=== PATIENT | male | born 1945 | race Hispanic/Latino ===

== ENCOUNTER 2018-08-26 17:00 | Emergency (ER) | payer OTHER ==
--- OUTSIDE RECORDS SUMMARY | 2018-08-26 17:02 | XMS REPORT ---
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
--- OUTSIDE RECORDS SUMMARY | 2018-08-26 17:02 | XMS REPORT ---
:1945 Author Organization [employer] Care Team Providers Name Role Phone Don Joyce Provider Role Unavailable Allergies No Known Allergies Problems Problem Type Condition Code Onset Dates Condition Status Problem Spinal stenosis, other region M48.00 Active Problem Type 2 diabetes mellitus with other E11.29 Active diabetic kidney complication Problem BPH without urinary obstruction N40.0 Active Problem Hypertension I10 Active Assessment Coronary artery disease I25.10 Active Problem Obesity E66.9 Active Assessment Anemia, chronic disease D63.8 Active Assessment BPH without urinary obstruction N40.0 Active Problem Hyperlipidemia E78.5 Active Problem 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 Active lumbosacral intervertebral disc Problem Anemia, chronic disease D63.8 Active Problem Coronary artery disease I25.10 Active Problem Thrombocytopenia D69.6 Active Assessment End stage renal disease N18.6 Active Assessment Hyperlipidemia E78.5 Active Assessment Subclinical hypothyroidism E03.9 Active Assessment 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 Problem End stage renal disease N18.6 Active Assessment Hypertension I10 Active Problem Subclinical hypothyroidism E03.9 Active Assessment Thrombocytopenia D69.6 Active Assessment Type 2 diabetes mellitus with other E11.29 Active diabetic kidney complication Problem 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 Medications Medication Code Code Instructions Start End Status Dosage System Date Date Norvasc [facility] [place] [facility]] 44875185727 10 MG Orally Active 1 tablet Once a day Plavix [facility] [place] 2] 85241184158 75 MG Orally Active 1 tablet Once a day Lipitor [facility] [place] 2] 79338457219 40 MG Orally Active 1 tablet Once a day Bumetanide [facility] [place]NOTE 2] 98477562725 2 MG Orally BID Active 1 tab Isosorbide [facility] [place]NOTE 2] 82648690176 30 MG Orally Active 1 tablet Dinitrate Twice a day Coreg [facility] [place] 2] 62072024744 25 MG Orally Active not defined Flomax [facility] [place] 2] 76070294911 0.4 MG Orally Oct 10, Active 1 capsule Once a day 2017 Lantus [facility] [place]NOTE 2] 97748326250 100 UNIT/ML Active not Subcutaneous defined Magnesium [facility] [place]NOTE 2] 73096432648 400 MG Orally Active 1 tablet Oxide Once a day as needed Results No Known Results Summary Purpose [employer]ClinicalWorks Submission
--- OUTSIDE RECORDS SUMMARY | 2018-08-26 17:02 | XMS REPORT ---
:1945 Author Organization [employer]ClinicalWorks Care Team Providers Name Role Phone Don Joyce Provider Role Unavailable Allergies, Adverse Reactions, Alerts Substance Reaction Event Type N.K.D.A. Info Not Available Non Drug Allergy Problems Problem Type Condition Code Onset Dates Condition Status Problem Spinal stenosis, other region M48.00 Active Problem Type 2 diabetes mellitus with other E11.29 Active diabetic kidney complication Problem BPH without urinary obstruction N40.0 Active Problem Hypertension I10 Active Assessment Anemia, chronic disease D63.8 Active Problem Obesity E66.9 Active Assessment BPH without urinary obstruction N40.0 Active Assessment Thrombocytopenia D69.6 Active Problem Hyperlipidemia E78.5 Active Problem 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 Active lumbosacral intervertebral disc Problem Anemia, chronic disease D63.8 Active Problem Coronary artery disease I25.10 Active Problem Thrombocytopenia D69.6 Active Assessment 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 Assessment End stage renal disease N18.6 Active Assessment Coronary artery disease I25.10 Active Assessment Subclinical hypothyroidism E03.9 Active Assessment Type 2 diabetes mellitus with other E11.29 Active diabetic kidney complication Problem End stage renal disease N18.6 Active Assessment Hyperlipidemia E78.5 Active Problem Subclinical hypothyroidism E03.9 Active Assessment Hypertension I10 Active Problem 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 Medications Medication Code Code Instructions Start End Status Dosage System Date Date Isosorbide [facility] 37311182135 30 MG Orally Active 1 tablet Dinitrate Twice a day Lipitor [facility] 73835619932 40 MG Orally Active 1 tablet Once a day Flomax [facility] 37568983328 0.4 MG Orally Maggie Active 1 capsule Once a day 2017 Coreg [facility] 18984836866 25 MG Orally Active not defined Bumetanide [facility] 24604891743 2 MG Orally Active not defined Plavix [facility] 57785105679 75 MG Orally Active 1 tablet Once a day Norvasc [facility] 84125575208 10 MG Orally Active 1 tablet Once a day Lantus [facility] 26273783034 100 UNIT/ML Active not Subcutaneous defined Magnesium [facility] 71384392090 400 MG Orally Active 1 tablet Oxide Once a day as needed Results No Known Results Summary Purpose [employer]ClinicalWorks Submission
--- OUTSIDE RECORDS SUMMARY | 2018-08-26 17:02 | XMS REPORT ---
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
--- NOTE | 2018-08-26 17:49 | RAD REPORT ---
EXAM DESCRIPTION: CTSpine Lumbar Wo Con08/26/2018 5:33 pm CLINICAL HISTORY: Back pain and radiculopathy COMPARISON: None TECHNIQUE: Computed axial tomography lumbar spine was obtained with coronal and sagittal reconstruct ion. All CT scans are performed using dose optimization technique as appropriate and may include automated exposure control or mA/KV adjustment according to patient size. FINDINGS: No fracture is seen. No dislocation is noted. Disc bulge, small central disc protrusion, ligamentum flavum and facet hypertrophy at L2-3 result in narrowing of the thecal sac which measures 4 millimeters. Disc bulge, ligamentum flavum and facet hypertrophy at L3-4 resulting in narrowing of the thecal sac which measures 6.5 millimeters. Mild to moderate narrowing the neural foramina is seen. Disc bulge, ligamentum flavum facet hypertrophy L5-S1 is seen. Vacuum phenomena is noted. Gas bubble abuts the right anterior aspect of the thecal sac. Thecal sac measures 6.5 millimeters. IMPRESSION: Negative for a lumbar fracture. Spondylosis L3-4 resulting in marked central spinal stenosis Spondylosis L4-5 and L5-S1 resulting in moderate central spinal stenosis
[2018-08-26] MEDS ORDERED: DIAZEPAM 5 MG TABLET ONE (17:59)
[2018-08-26] MEDS ORDERED: ONDANSETRON 4 MG/2 ML VIAL ONE (18:00)
[2018-08-26] MEDS ORDERED: DEXAMETHASONE 4 MG/ML VIAL ONE (18:00)
[2018-08-26] MEDS ORDERED: MORPHINE 4 MG/ML SYR ONE (18:00)
[2018-08-26 18:26] LABS: Absolute Lymphocytes (CBC) 0.5 K/uL (0.7-4.9); Absolute Monocytes 0.5 K/uL (0.1-1.3); Absolute Neutrophil 5.6 K/uL (1.8-8.0); Basophils % 0.8 % (0-1.3); Eosinophils % 3.4 % (0-4.4); Hematocrit 30.9 % (39.6-49.0); MCH 33.4 pg (27.0-35.0); MCV 95.9 fL (80-100); MPV 9.4 fL (7.6-11.3); Monocytes % 7.7 % (3.3-12.3); RBC Red Blood Cell Count 3.23 M/uL (4.33-5.43)
[2018-08-26 18:43] LABS: Albumin 3.7 g/dL (3.4-5.0); Bilirubin Total 0.6 mg/dL (0.2-1.0); Potassium 3.5 mmol/L (3.5-5.1); Protein, Total 7.4 g/dL (6.4-8.2)
--- NOTE | 2018-08-26 19:52 | EDPHYS ---
Physician Documentation [facility] Name: Geronimo Hurtado Age: 72 yrs Sex: Male : 1945 Arrival Date: 08/26/2018 Time: 17:06 Bed 25 Private MD: Davion Degroot ED Physician Dandre Bosch HPI: 08/26 17:24 This 72 yrs old Male presents to ER via Ambulatory with complaints of Back gary Pain. 17:24 The patient presents with pain that is acute, and decreased range of motion. The gary symptoms are located in the low back. Onset: The symptoms/episode began/occurred 2 day(s) ago. The pain does not radiate. Associated signs and symptoms: The patient has no apparent associated signs or symptoms. The problem was sustained when bending over, when lifting. Severity of symptoms: At their worst the symptoms were moderate, severe, in the emergency department the symptoms are unchanged. Historical: - Allergies: 17:25 No Known Allergies; ss - PMHx: 17:25 Diabetes - IDDM; ESRD; DIALYSIS MWF; ss - PSHx: 17:25 CABG; R upper arm dialysis graft; ss - Immunization history:: Adult Immunizations up to date. - Social history:: Smoking status: Patient/guardian denies using tobacco. - Ebola Screening: : Patient denies exposure to infectious person Patient denies travel to an Ebola-affected area in the 21 days before illness onset. - Family history:: not pertinent. ROS: 17:24 Constitutional: Negative for fever, chills, and weight loss, Eyes: Negative for injury, gary pain, redness, and discharge, ENT: Negative for injury, pain, and discharge, Neck: Negative for injury, pain, and swelling, Cardiovascular: Negative for chest pain, palpitations, and edema, Respiratory: Negative for shortness of breath, cough, wheezing, and pleuritic chest pain, Abdomen/GI: Negative for abdominal pain, nausea, vomiting, diarrhea, and constipation, : Negative for injury, bleeding, discharge, and swelling, MS/Extremity: Negative for injury and deformity, Skin: Negative for injury, rash, and discoloration, Neuro: Negative for headache, weakness, numbness, tingling, and seizure, Psych: Negative for depression, anxiety, suicide ideation, homicidal ideation, and hallucinations, Allergy/Immunology: Negative for hives, rash, and allergies, Endocrine: Negative for neck swelling, polydipsia, polyuria, polyphagia, and marked weight changes, Hematologic/Lymphatic: Negative for swollen nodes, abnormal bleeding, and unusual bruising. 17:24 Back: Positive for decreased range of motion, pain at rest, pain with movement, of the lumbar area. Exam: 17:24 Constitutional: This is a well developed, well nourished patient who is awake, alert, gary and in no acute distress. Head/Face: Normocephalic, atraumatic. Eyes: Pupils equal round and reactive to light, extra-ocular motions intact. Lids and lashes normal. Conjunctiva and sclera are non-icteric and not injected. Cornea within normal limits. Periorbital areas with no swelling, redness, or edema. ENT: Nares patent. No nasal discharge, no septal abnormalities noted. Tympanic membranes are normal and external auditory canals are clear. Oropharynx with no redness, swelling, or masses, exudates, or evidence of obstruction, uvula midline. Mucous membranes moist. Neck: Trachea midline, no thyromegaly or masses palpated, and no cervical lymphadenopathy. Supple, full range of motion without nuchal rigidity, or vertebral point tenderness. No Meningismus. Chest/axilla: Normal chest wall appearance and motion. Nontender with no deformity. No lesions are appreciated. Cardiovascular: Regular rate and rhythm with a normal S1 and S2. No gallops, murmurs, or rubs. Normal PMI, no JVD. No pulse deficits. Respiratory: Lungs have equal breath sounds bilaterally, clear to auscultation and percussion. No rales, rhonchi or wheezes noted. No increased work of breathing, no retractions or nasal flaring. Abdomen/GI: Soft, non-tender, with normal bowel sounds. No distension or tympany. No guarding or rebound. No evidence of tenderness throughout. Male : Normal genitalia with no discharge or lesions. Skin: Warm, dry with normal turgor. Normal color with no rashes, no lesions, and no evidence of cellulitis. MS/ Extremity: Pulses equal, no cyanosis. Neurovascular intact. Full, normal range of motion. Neuro: Awake and alert, GCS 15, oriented to person, place, time, and situation. Cranial nerves II-XII grossly intact. Motor strength 5/5 in all extremities. Sensory grossly intact. Cerebellar exam normal. Normal gait. Psych: Awake, alert, with orientation to person, place and time. Behavior, mood, and affect are within normal limits. 17:24 Musculoskeletal/extremity: DVT Exam: No signs of deep vein thrombosis. no pain, no swelling, no tenderness, negative Homans' sign noted on exam, no appreciated bluish discoloration, no erythema, no increased warmth. Vital Signs: 17:25 BP 193 / 67; Pulse 80; Resp 21; Temp 98.9; Pulse Ox 100% on R/A; Weight 63.5 kg; Height ss 5 ft. 3 in. (160.02 cm); Pain 10/10; 18:18 BP 175 / 58; Pulse 75; Resp 18; Pulse Ox 95% on R/A; aj1 19:15 BP 175 / 72; Pulse 75; Resp 17; Pulse Ox 99% on R/A; Pain 3/10; rr5 17:25 Body Mass Index 24.80 (63.50 kg, 160.02 cm) MDM: 17:13 Patient medically screened. [facility] 17:24 Data reviewed: vital signs, nurses notes, lab test result(s), radiologic studies, CT gary scan. 08/26 17:24 Order name: Comprehensive Metabolic Panel; Complete Time: 19:49 [facility] 08/26 17:24 Order name: CBC with Diff; Complete Time: 18:37 [facility] 08/26 17:24 Order name: CT Lumbar Spine Wo Con; Complete Time: 18:37 [facility] Administered Medications: 18:10 Drug: morphine 4 mg Route: IVP; Site: left antecubital; aj1 20:13 Follow up: Response: No adverse reaction rr5 18:10 Drug: Decadron - Dexamethasone 10 mg Route: IVP; Site: left antecubital; aj1 20:13 Follow up: Response: No adverse reaction rr5 18:10 Drug: Valium 5 mg Route: PO; aj1 20:13 Follow up: Response: No adverse reaction rr5 18:10 Drug: Zofran 4 mg Route: IVP; Site: left antecubital; aj1 20:13 Follow up: Response: No adverse reaction rr5 18:25 CANCELLED (Inappropriate at this time): Zofran 4 mg PO once aj1 Disposition: 08/26/18 19:52 Discharged to Home. Impression: Low back pain, End stage renal disease, Spondylolysis, lumbar region, Spinal stenosis, lumbar region, Anemia, unspecified. - Condition is Fair. - Discharge Instructions: Back Pain, Adult, Musculoskeletal Pain, Back Injury Prevention, [id number]-[id number], Dialysis, Back Pain, Adult, [id number]-eg-Qvdi. - Prescriptions for Tylenol- Codeine #3 300-30 mg Oral Tablet - take 2 tablet by ORAL route every 6 hours As needed; 30 tablet. Valium 5 mg Oral Tablet - take 1 tablet by ORAL route every 8 hours As needed; 20 tablet. Medrol (Warren) 4 mg Oral Tablets, Dose Pack - take 1 tablet by ORAL route as directed - follow package instructions; 1 packet. - Medication Reconciliation Form, Thank You Letter, Antibiotic Education, Prescription Opioid Use form. - Follow up: Davion Degroot; When: 2 - 3 days; Reason: Recheck today's complaints, Continuance of care, Re-evaluation by your physician. - Problem is new. - Symptoms have improved. Signatures: Dispatcher [employer] Gina Wang RN RN aj1 Dandre Bosch MD MD cha Smirch, Shelby, RN RN ss Rusty Montano RN RN rr5 Corrections: (The following items were deleted from the chart) 18:25 17:27 Zofran 4 mg PO once ordered. gary lyle 19:53 19:52 08/26/2018 19:52 Discharged to Home. Impression: Low back pain; End stage renal gary disease. Condition is Fair. Discharge Instructions: Back Pain, Adult, Musculoskeletal Pain, Back Injury Prevention, Kkuu-cz-Yepa, Dialysis, Back Pain, Adult, Smwe-ov-Ujxh. Prescriptions for Tylenol-Codeine #3 300-30 mg Oral Tablet - take 2 tablet by ORAL route every 6 hours As needed; 30 tablet, Valium 5 mg Oral Tablet - take 1 tablet by ORAL route every 8 hours As needed; 20 tablet, Medrol (Warren) 4 mg Oral Tablets, Dose Pack - take 1 tablet by ORAL route as directed - follow package instructions; 1 packet. and Forms are Medication Reconciliation Form, Thank You Letter, Antibiotic Education, Prescription Opioid Use. Follow up: Davion Degroot; When: 2 - 3 days; Reason: Recheck today's complaints, Continuance of care, Re-evaluation by your physician. Problem is new. Symptoms have improved. gary 20:14 19:53 08/26/2018 19:52 Discharged to Home. Impression: Low back pain; End stage renal rr5 disease; Spondylolysis, lumbar region; Spinal stenosis, lumbar region; Anemia, unspecified. Condition is Fair. Discharge Instructions: Back Pain, Adult, Musculoskeletal Pain, Back Injury Prevention, Ozqv-bh-Wfah, Dialysis, Back Pain, Adult, Hobl-wv-Jtzl. Prescriptions for Tylenol-Codeine #3 300-30 mg Oral Tablet - take 2 tablet by ORAL route every 6 hours As needed; 30 tablet, Valium 5 mg Oral Tablet - take 1 tablet by ORAL route every 8 hours As needed; 20 tablet, Medrol (Warren) 4 mg Oral Tablets, Dose Pack - take 1 tablet by ORAL route as directed - follow package instructions; 1 packet. and Forms are Medication Reconciliation Form, Thank You Letter, Antibiotic Education, Prescription Opioid Use. Follow up: Davion Degroot; When: 2 - 3 days; Reason: Recheck today's complaints, Continuance of care, Re-evaluation by your physician. Problem is new. Symptoms have improved. gary
--- NOTE | 2018-08-26 19:52 | ER ---
Nurse's Notes [facility] Name: Geronimo Hurtado Age: 72 yrs Sex: Male : 1945 Arrival Date: 08/26/2018 Time: 17:06 Bed 25 Private MD: Davion Degroot Diagnosis: Low back pain;End stage renal disease;Spondylolysis, lumbar region;Spinal stenosis, lumbar region;Anemia, unspecified Presentation: 08/26 17:22 Presenting complaint: Patient states: R lower back pain that began after laying in an ss awkward position, installing a faucet 2 days ago. Pt reports that he has had similar back pain before, and believes it was a disc in his back last time. Transition of care: patient was not received from another setting of care. Onset of symptoms was August 24, 2018. Risk Assessment: Do you want to hurt yourself or someone else? Patient reports no desire to harm self or others. Initial Sepsis Screen: Does the patient meet any 2 criteria? RR > 20 per min. Does the patient have a suspected source of infection? No. Patient's initial sepsis screen is negative. Care prior to arrival: None. 17:22 Method Of Arrival: Ambulatory ss 17:22 Acuity: LYNETTE 3 ss Historical: - Allergies: 17:25 No Known Allergies; ss - PMHx: 17:25 Diabetes - IDDM; ESRD; DIALYSIS MWF; ss - PSHx: 17:25 CABG; R upper arm dialysis graft; ss - Immunization history:: Adult Immunizations up to date. - Social history:: Smoking status: Patient/guardian denies using tobacco. - Ebola Screening: : Patient denies exposure to infectious person Patient denies travel to an Ebola-affected area in the 21 days before illness onset. - Family history:: not pertinent. Screenin:18 Abuse screen: Denies threats or abuse. Denies injuries from another. Nutritional aj1 screening: No deficits noted. Tuberculosis screening: No symptoms or risk factors identified. 19:15 Fall Risk None identified. rr5 Assessment: 17:27 Reassessment: Patient taken to CT via stretcher. aj1 18:18 General: Appears in no apparent distress. uncomfortable, Behavior is calm, cooperative, aj1 appropriate for age. Pain: Complains of pain in lumbar area Pain does not radiate. Pain currently is 10 out of 10 on a pain scale. Neuro: Level of Consciousness is awake, alert, obeys commands, Quality Control Technician are equal bilaterally Moves all extremities. Full function. Cardiovascular: Patient's skin is warm and dry. Respiratory: Airway is patent Respiratory effort is even, unlabored, Respiratory pattern is regular, symmetrical. GI: No signs and/or symptoms were reported involving the gastrointestinal system. : No signs and/or symptoms were reported regarding the genitourinary system. EENT: No signs and/or symptoms were reported regarding the EENT system. Derm: No signs and/or symptoms reported regarding the dermatologic system. Skin is pink, warm \T\ dry. normal. Musculoskeletal: Circulation, motion, and sensation intact. Range of motion: intact in all extremities. 19:15 General: Appears in no apparent distress. comfortable, Behavior is calm, cooperative, rr5 appropriate for age. Pain: Complains of pain in lumbar area Pain does not radiate. Pain currently is 3 out of 10 on a pain scale. Quality of pain is described as aching, Aggravated by increased activity. Neuro: Level of Consciousness is awake, alert, obeys commands, Quality Control Technician are equal bilaterally. Cardiovascular: Capillary refill < 3 seconds Patient's skin is warm and dry. Respiratory: Airway is patent Respiratory effort is even, unlabored, Respiratory pattern is regular, symmetrical. GI: No signs and/or symptoms were reported involving the gastrointestinal system. : No signs and/or symptoms were reported regarding the genitourinary system. EENT: No signs and/or symptoms were reported regarding the EENT system. Derm: No signs and/or symptoms reported regarding the dermatologic system. Musculoskeletal: Circulation, motion, and sensation intact. Range of motion: intact in all extremities. Vital Signs: 17:25 BP 193 / 67; Pulse 80; Resp 21; Temp 98.9; Pulse Ox 100% on R/A; Weight 63.5 kg; Height ss 5 ft. 3 in. (160.02 cm); Pain 10/10; 18:18 BP 175 / 58; Pulse 75; Resp 18; Pulse Ox 95% on R/A; aj1 19:15 BP 175 / 72; Pulse 75; Resp 17; Pulse Ox 99% on R/A; Pain 3/10; rr5 17:25 Body Mass Index 24.80 (63.50 kg, 160.02 cm) ED Course: 17:06 Patient arrived in ED. sb2 17:06 Davion Degroot DO is Private Physician. sb2 17:13 Dandre Bosch MD is Attending Physician. gary 17:24 Triage completed. ss 17:24 Gina López RN is Primary Nurse. aj1 17:25 Arm band placed on right wrist. ss 17:[address] vm2 17:34 CT Lumbar Spine Wo Con In Process Unspecified. EDMS 18:18 Patient has correct armband on for positive identification. Bed in low position. Call aj1 light in reach. Side rails up X2. 18:18 No provider procedures requiring assistance completed. Inserted saline lock: 20 gauge aj1 in left antecubital area, using aseptic technique. Blood collected. Missed attempt(s): 22 gauge in left forearm. Bleeding controlled, band aid applied, catheter tip intact. 19:49 Davion Degroot DO is Referral Physician. gary 20:12 IV discontinued, bleeding controlled, Pressure dressing applied. rr5 Administered Medications: 18:10 Drug: morphine 4 mg Route: IVP; Site: left antecubital; aj1 20:13 Follow up: Response: No adverse reaction rr5 18:10 Drug: Decadron - Dexamethasone 10 mg Route: IVP; Site: left antecubital; aj1 20:13 Follow up: Response: No adverse reaction rr5 18:10 Drug: Valium 5 mg Route: PO; aj1 20:13 Follow up: Response: No adverse reaction rr5 18:10 Drug: Zofran 4 mg Route: IVP; Site: left antecubital; aj1 20:13 Follow up: Response: No adverse reaction rr5 18:25 CANCELLED (Inappropriate at this time): Zofran 4 mg PO once aj1 Outcome: 19:52 Discharge ordered by . gary 20:11 Discharged to home ambulatory. rr5 20:11 Condition: stable 20:11 Discharge instructions given to patient, family, Instructed on discharge instructions, follow up and referral plans. medication usage, Demonstrated understanding of instructions, follow-up care, medications, Prescriptions given X 3. 20:14 Patient left the ED. rr5 Signatures: Dispatcher [employer] EDKS Gina López, RN RN aj1 Dandre Bosch MD MD cha Smirch, Shelby, RN RN ss Sidra Beckman 2 Darshana Gama sb2 Rusty Montano, RN RN rr5
[2018-08-26 20:39] VITALS: TEMP 98.9
[2018-08-26 20:42] VITALS: BP 175/72; O2SAT 99
== END 2018-08-26 20:14 | disposition home or self-care (01) ==
LOC: ER 17:00
DX: M47.816 Spondylosis without myelopathy or radiculopathy, lumbar region (principal); M48.061 Spinal stenosis, lumbar region without neurogenic claudication; E11.22 Type 2 diabetes mellitus with diabetic chronic kidney disease; N18.6 End stage renal disease; D63.1 Anemia in chronic kidney disease; Z79.4 Long term (current) use of insulin; Z99.2 Dependence on renal dialysis; Z95.1 Presence of aortocoronary bypass graft
CPT/HCPCS: 36415; 72131; 80053; 85025; 96374; 96375; 99284; J2405

== ENCOUNTER 2019-11-03 07:03 | Day surgery (SDC) | payer OTHER ==
--- OUTSIDE RECORDS SUMMARY | 2019-10-31 16:19 | XMS REPORT ---
:1945 Author Organization eClinicalWorks Care Team Providers Name Role Phone Isiah Don Provider Role Unavailable Allergies, Adverse Reactions, Alerts Substance Reaction Event Type N.K.D.A. 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 Assessment Hyperlipidemia E78.5 Active Assessment Type 2 diabetes mellitus with other E11.29 Active diabetic kidney complication Problem Hyperlipidemia E78.5 Active Assessment End stage renal disease N18.6 Active Problem 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 Active lumbosacral intervertebral disc Assessment Generalized anxiety disorder F41.1 Active Problem Thrombocytopenia D69.6 Active Problem Type 2 diabetes mellitus with other E11.29 Active diabetic kidney complication Problem Anemia, chronic disease D63.8 Active Problem Stented coronary artery Z95.5 Active Problem Current moderate episode of major F32.1 Active depressive disorder without prior episode Assessment Current moderate episode of major F32.1 Active depressive disorder without prior episode Assessment History of non-ST elevation I25.2 Active myocardial infarction (NSTEMI) Problem Generalized anxiety disorder F41.1 Active Assessment Stented coronary artery Z95.5 Active Problem BPH without urinary obstruction N40.0 Active Problem Spinal stenosis, other region M48.00 Active Problem History of non-ST elevation I25.2 Active myocardial infarction (NSTEMI) Problem 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 Problem Subclinical hypothyroidism E03.9 Active Problem 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 Assessment 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 Problem Obesity E66.9 Active Problem Hypertension I10 Active Problem End stage renal disease N18.6 Active Problem Coronary artery disease I25.10 Active Medications Medication Code Code Instructions Start End Status Dosage System Date Date Oxybutynin NDC 89893915115 5 MG Orally Active 1 tablet Chloride Twice a day Amlodipine [facility] 53601542338 10 MG Orally Active 1 tablet Besylate Once a day Sertraline HCl [facility] 92262064234 25 MG Orally Active 1 tablet Once a day Imdur NDC 0 60 MG Orally Active 1 tablet Once a day in the morning Aspir-Low [facility] 02145892678 81 MG Orally Active 1 tablet Once a day Sevelamer HCl [facility] 56867831578 800 MG Orally Active 1 tablet Three times a with meals day Coreg [facility] 68803258584 25 MG Orally Active not defined Lantus [facility] 04725041446 100 UNIT/ML Active inject 15 Subcutaneous units Once a day Bumetanide [facility] 40631001474 2 MG Orally BID Active 1 tab Lisinopril [facility] 16849191500 40 MG Orally Active 1 tablet Once a day Plavix [facility] 43901474126 75 MG Orally Inactive 1 tablet Once a day Nitroglycerin [facility] 19658865611 0.4 MG Active as Sublingual directed HydrALAZINE HCl [facility] 07219287713 50 MG Orally Active 1 tablet Three times a with food day Lorazepam [facility] 45484359211 0.5 MG Orally Active 1 tablet every 6 hrs as needed Lipitor [facility] 57208569740 40 MG Orally Active 1 tablet Once a day Carvedilol [facility] 47844635921 25 MG Orally Active 1 tablet Twice a day Brilinta [facility] 40872787862 90 MG Orally Active 1 tablet Twice a day Norvasc [facility] 85095305275 10 MG Orally Active 1 tablet Once a day Tamsulosin HCl [facility] 13567079887 0.4 MG Orally Active 1 capsule twice a day Dialyvite 800 [facility] 08846254289 0.8 MG Orally Active 1 tablet Once a day Atorvastatin [facility] 70586686465 40 MG Orally Active 1 tablet Calcium Once a day Magnesium Oxide [facility] 28142196247 400 MG Orally Active 1 tablet Once a day as needed Results No Known Results Summary Purpose eClinicalWorks Submission
--- OUTSIDE RECORDS SUMMARY | 2019-10-31 16:19 | XMS REPORT ---
:1945 [facility] Address [address] [place] [address] Dr. Shoemaker [address] [place] [address] Care Team Providers Name Role Phone Unavailable Unavailable Unavailable Problems This patient has no known problems. Allergies, Adverse Reactions, Alerts This patient has no known allergies or adverse reactions. Medications This patient has no known medications. Encounters Start End Encounter Admission Attending Care Care Encounter Date/Time Date/Time Type Type Clinicians Facility Department ID 2019-10-10 Outpatient [facility] [id number] 08:42:24 2019-10-15 2019-10-13 Inpatient [facility] [id number] 08:28:00 18:12:00 2019-10-07 2019-10-06 Inpatient E [facility] [id number] 14:24:00 13:06:00 2019-10-05 2019-10-05 Emergency E [facility] [id number] 14:47:00 14:47:00 2019-08-20 2019-08-20 Inpatient E [facility] [id number] 19:14:00 15:35:00
--- OUTSIDE RECORDS SUMMARY | 2019-10-31 16:19 | XMS REPORT ---
:1945 Author Organization eClinicalWorks Care Team Providers Name Role Phone Don Joyce Provider Role Unavailable Allergies No Known Allergies Problems Problem Type Condition Code Onset Dates Condition Status Problem Thrombocytopenia D69.6 Active Problem Type 2 diabetes mellitus with other E11.29 Active diabetic kidney complication Problem Anemia, chronic disease D63.8 Active Problem Stented coronary artery Z95.5 Active Assessment Anemia, chronic disease D63.8 Active Problem Current moderate episode of major F32.1 Active depressive disorder without prior episode Assessment Type 2 diabetes mellitus with other E11.29 Active diabetic kidney complication Assessment Thrombocytopenia D69.6 Active Problem Generalized anxiety disorder F41.1 Active Problem BPH without urinary obstruction N40.0 Active Problem Spinal stenosis, other region M48.00 Active Problem History of non-ST elevation I25.2 Active myocardial infarction (NSTEMI) Problem 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
--- OUTSIDE RECORDS SUMMARY | 2019-10-31 16:20 | XMS REPORT ---
:1945 Author Organization [employer]ClinicalWorks Care Team Providers Name Role Phone Thony Joyceh Provider Role Unavailable Allergies, Adverse Reactions, Alerts Substance Reaction Event Type N.K.D.A. 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 Assessment Hyperlipidemia E78.5 Active Assessment Type 2 diabetes mellitus with other E11.29 Active diabetic kidney complication Assessment End stage renal disease N18.6 Active Problem Hyperlipidemia E78.5 Active Assessment Generalized anxiety disorder F41.1 Active Problem 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 Active lumbosacral intervertebral disc Assessment Stented coronary artery Z95.5 Active Problem Thrombocytopenia D69.6 Active Problem Type 2 diabetes mellitus with other E11.29 Active diabetic kidney complication Problem Anemia, chronic disease D63.8 Active Problem Stented coronary artery Z95.5 Active Problem Current moderate episode of major F32.1 Active depressive disorder without prior episode Assessment Medicare annual wellness visit, Z00.00 Active subsequent Assessment Current moderate episode of major F32.1 Active depressive disorder without prior episode Problem Generalized anxiety disorder F41.1 Active Assessment History of non-ST elevation I25.2 Active myocardial infarction (NSTEMI) Problem BPH without urinary obstruction N40.0 Active Problem Spinal stenosis, other region M48.00 Active Problem History of non-ST elevation I25.2 Active myocardial infarction (NSTEMI) Problem 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 Problem Subclinical hypothyroidism E03.9 Active Problem 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 Assessment 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 Problem Obesity E66.9 Active Problem Hypertension I10 Active Problem End stage renal disease N18.6 Active Problem Coronary artery disease I25.10 Active Medications Medication Code Code Instructions Start End Status Dosage System Date Date Coreg [facility] 54748829585 25 MG Orally Active not defined Lantus [facility] 96477954238 100 UNIT/ML Active inject 15 Subcutaneous units Once a day Lipitor [facility] 21471026415 40 MG Orally Active 1 tablet Once a day Magnesium Oxide [facility] 16433463574 400 MG Orally Active 1 tablet Once a day as needed Plavix [facility] 95889137046 75 MG Orally Inactive 1 tablet Once a day Atorvastatin [facility] 19674709363 40 MG Orally Active 1 tablet Calcium Once a day Dialyvite 800 [facility] 79372945788 0.8 MG Orally Active 1 tablet Once a day HydrALAZINE HCl [facility] 87741658944 50 MG Orally Active 1 tablet Three times a with food day Sertraline HCl [facility] 84895789787 25 MG Orally Active 1 tablet Once a day Nitroglycerin [facility] 86176116899 0.4 MG Active as Sublingual directed Bumetanide [facility] 62186749939 2 MG Orally BID Active 1 tab Lorazepam [facility] 45358591237 0.5 MG Orally Active 1 tablet every 6 hrs as needed Oxybutynin [facility] 93954959493 5 MG Orally Active 1 tablet Chloride Twice a day Brilinta [facility] 84253123188 90 MG Orally Active 1 tablet Twice a day Lisinopril [facility] 14488642331 40 MG Orally Active 1 tablet Once a day Norvasc [facility] 69359889659 10 MG Orally Active 1 tablet Once a day Sevelamer HCl [facility] 40512243139 800 MG Orally Active 1 tablet Three times a with meals day Carvedilol [facility] 44173039783 25 MG Orally Active 1 tablet Twice a day Imdur NDC 0 60 MG Orally Active 1 tablet Once a day in the morning Aspir-Low [facility] 90774952960 81 MG Orally Active 1 tablet Once a day Tamsulosin HCl [facility] 41821808068 0.4 MG Orally Active 1 capsule twice a day Results No Known Results Summary Purpose eClinicalWorks Submission
--- OUTSIDE RECORDS SUMMARY | 2019-11-03 07:07 | XMS REPORT ---
[...] involving I25.709 Active coronary bypass graft of [place] heart with angina pectoris Problem Subclinical hypothyroidism [...]
--- OUTSIDE RECORDS SUMMARY | 2019-11-03 07:07 | XMS REPORT ---
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 Problem Obesity E66.9 Active Problem Hypertension I10 Active Problem End stage renal disease N18.6 Active Problem Coronary artery disease I25.10 Active Medications Medication Code Code Instructions Start End Status Dosage System Date Date Coreg [facility] 35028186028 25 MG Orally Active not defined Lantus [facility] 73615682398 100 UNIT/ML Active inject 15 Subcutaneous units Once a day Lipitor [facility] 88091934877 40 MG Orally Active 1 tablet Once a day Magnesium Oxide [facility] 29491545275 400 MG Orally Active 1 tablet Once a day as needed Plavix [facility] 22729788225 75 MG Orally Inactive 1 tablet Once a day Atorvastatin [facility] 14669324372 40 MG Orally Active 1 tablet Calcium Once a day Dialyvite 800 [facility] 93817379413 0.8 MG Orally Active 1 tablet Once a day HydrALAZINE HCl [facility] 80799705096 50 MG Orally Active 1 tablet Three times a with food day Sertraline HCl [facility] 25935754131 25 MG Orally Active 1 tablet Once a day Nitroglycerin [facility] 72266780504 0.4 MG Active as Sublingual directed Bumetanide [facility] 66401723322 2 MG Orally BID Active 1 tab Lorazepam [facility] 19134590762 0.5 MG Orally Active 1 tablet every 6 hrs as needed Oxybutynin [facility] 59567334485 5 MG Orally Active 1 tablet Chloride Twice a day Brilinta [facility] 75018708678 90 MG Orally Active 1 tablet Twice a day Lisinopril [facility] 73989688480 40 MG Orally Active 1 tablet Once a day Norvasc [facility] 59880116825 10 MG Orally Active 1 tablet Once a day Sevelamer HCl [facility] 58014346923 800 MG Orally Active 1 tablet Three times a with meals day Carvedilol [facility] 30505705255 25 MG Orally Active 1 tablet Twice a day Imdur NDC 0 60 MG Orally Active 1 tablet Once a day in the morning Aspir-Low [facility] 63252128721 81 MG Orally Active 1 tablet Once a day Tamsulosin HCl [facility] 21106555964 0.4 MG Orally Active 1 capsule twice a day Results No Known Results Summary Purpose eClinicalWorks Submission
--- OUTSIDE RECORDS SUMMARY | 2019-11-03 07:07 | XMS REPORT ---
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 Problem Obesity E66.9 Active Problem Hypertension I10 Active Problem End stage renal disease N18.6 Active Problem Coronary artery disease I25.10 Active Medications Medication Code Code Instructions Start End Status Dosage System Date Date Oxybutynin NDC 11830236215 5 MG Orally Active 1 tablet Chloride Twice a day Amlodipine [facility] 80217594751 10 MG Orally Active 1 tablet Besylate Once a day Sertraline HCl [facility] 82671808481 25 MG Orally Active 1 tablet Once a day Imdur NDC 0 60 MG Orally Active 1 tablet Once a day in the morning Aspir-Low [facility] 65118712988 81 MG Orally Active 1 tablet Once a day Sevelamer HCl [facility] 63634514775 800 MG Orally Active 1 tablet Three times a with meals day Coreg [facility] 15279400753 25 MG Orally Active not defined Lantus [facility] 59872464182 100 UNIT/ML Active inject 15 Subcutaneous units Once a day Bumetanide [facility] 78993922032 2 MG Orally BID Active 1 tab Lisinopril [facility] 51076061591 40 MG Orally Active 1 tablet Once a day Plavix [facility] 16998204687 75 MG Orally Inactive 1 tablet Once a day Nitroglycerin [facility] 68863981930 0.4 MG Active as Sublingual directed HydrALAZINE HCl [facility] 05770886313 50 MG Orally Active 1 tablet Three times a with food day Lorazepam [facility] 55078048497 0.5 MG Orally Active 1 tablet every 6 hrs as needed Lipitor [facility] 87560980284 40 MG Orally Active 1 tablet Once a day Carvedilol [facility] 38780531208 25 MG Orally Active 1 tablet Twice a day Brilinta [facility] 32330119923 90 MG Orally Active 1 tablet Twice a day Norvasc [facility] 10524922557 10 MG Orally Active 1 tablet Once a day Tamsulosin HCl [facility] 51084302910 0.4 MG Orally Active 1 capsule twice a day Dialyvite 800 [facility] 87675588078 0.8 MG Orally Active 1 tablet Once a day Atorvastatin [facility] 00546801394 40 MG Orally Active 1 tablet Calcium Once a day Magnesium Oxide [facility] 41509584620 400 MG Orally Active 1 tablet Once a day as needed Results No Known Results Summary Purpose eClinicalWorks Submission
--- OUTSIDE RECORDS SUMMARY | 2019-11-03 07:07 | XMS REPORT ---
:1945 [facility] Address [address] [place] [address] Dr. Shoemaker [address] [place] [address] Care Team Providers Name Role Phone Unavailable [...]
[2019-11-03] MEDS ORDERED: NA CHLORIDE 0.9% 250 ML ONE (08:20)
[2019-11-03 08:56] VITALS: BMI 25.3
[2019-11-03 13:48] VITALS: BP 133/46; TEMP 97.5; O2SAT 99
== END 2019-11-03 15:05 | disposition home or self-care (01) ==
LOC: BLT 07:03 → DS 15:05
PROVIDERS: ATTEND Internal Medicine Nephrology
PROC: 30233N1 Transfusion of Nonautologous Red Blood Cells into Peripheral Vein, Percutaneous Approach (ICD-10-PCS; principal; 2019-11-03)
DX: N18.6 End stage renal disease (principal)
CPT/HCPCS: 36415 ×2; 86900; 86850; 86308; 86901; 85018; 85014; 36430; P9016 ×2; J7030

== ENCOUNTER 2019-12-15 16:15 | Observation (INO) | payer OTHER ==
--- OUTSIDE RECORDS SUMMARY | 2019-12-15 16:17 | XMS REPORT ---
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 81757595004 10 MG Orally Active 1 tablet Besylate Once a day Sertraline HCl [facility] 88393382771 25 MG Orally Active 1 tablet Once a day Imdur NDC 0 60 MG Orally Active 1 tablet Once a day in the morning Aspir-Low [facility] 79844924443 81 MG Orally Active 1 tablet Once a day Sevelamer HCl [facility] 79592653218 800 MG Orally Active 1 tablet Three times a with meals day Coreg [facility] 77462723844 25 MG Orally Active not defined Lantus [facility] 25475426030 100 UNIT/ML Active inject 15 Subcutaneous units Once a day Bumetanide [facility] 25571190629 2 MG Orally BID Active 1 tab Lisinopril [facility] 93163692127 40 MG Orally Active 1 tablet Once a day Plavix [facility] 64936388856 75 MG Orally Inactive 1 tablet Once a day Nitroglycerin [facility] 83232492868 0.4 MG Active as Sublingual directed HydrALAZINE HCl [facility] 92105869864 50 MG Orally Active 1 tablet Three times a with food day Lorazepam [facility] 36282889874 0.5 MG Orally Active 1 tablet every 6 hrs as needed Lipitor [facility] 01523740174 40 MG Orally Active 1 tablet Once a day Carvedilol [facility] 22033727474 25 MG Orally Active 1 tablet Twice a day Brilinta [facility] 20462513770 90 MG Orally Active 1 tablet Twice a day Norvasc [facility] 49844698532 10 MG Orally Active 1 tablet Once a day Tamsulosin HCl [facility] 76913425778 0.4 MG Orally Active 1 capsule twice a day Dialyvite 800 [facility] 29693582997 0.8 MG Orally Active 1 tablet Once a day Atorvastatin [facility] 69335588254 40 MG Orally Active 1 tablet Calcium Once a day Magnesium Oxide [facility] 51414900845 400 MG Orally Active 1 tablet Once a day as needed Results No Known Results Summary Purpose eClinicalWorks Submission
--- OUTSIDE RECORDS SUMMARY | 2019-12-15 16:18 | XMS REPORT ---
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 Problem Obesity E66.9 Active Problem Hypertension I10 Active Problem End stage renal disease N18.6 Active Problem Coronary artery disease I25.10 Active Medications Medication Code Code Instructions Start End Status Dosage System Date Date Coreg [facility] 90660391500 25 MG Orally Active not defined Lantus [facility] 18965559724 100 UNIT/ML Active inject 15 Subcutaneous units Once a day Lipitor [facility] 49826932558 40 MG Orally Active 1 tablet Once a day Magnesium Oxide [facility] 54315239614 400 MG Orally Active 1 tablet Once a day as needed Plavix [facility] 44558316405 75 MG Orally Inactive 1 tablet Once a day Atorvastatin [facility] 29006701682 40 MG Orally Active 1 tablet Calcium Once a day Dialyvite 800 [facility] 69166244021 0.8 MG Orally Active 1 tablet Once a day HydrALAZINE HCl [facility] 62466670767 50 MG Orally Active 1 tablet Three times a with food day Sertraline HCl [facility] 17294712581 25 MG Orally Active 1 tablet Once a day Nitroglycerin [facility] 14612957797 0.4 MG Active as Sublingual directed Bumetanide [facility] 12552077556 2 MG Orally BID Active 1 tab Lorazepam [facility] 99786519068 0.5 MG Orally Active 1 tablet every 6 hrs as needed Oxybutynin [facility] 67947941659 5 MG Orally Active 1 tablet Chloride Twice a day Brilinta [facility] 98228432609 90 MG Orally Active 1 tablet Twice a day Lisinopril [facility] 33454403005 40 MG Orally Active 1 tablet Once a day Norvasc [facility] 12622808952 10 MG Orally Active 1 tablet Once a day Sevelamer HCl [facility] 77275612593 800 MG Orally Active 1 tablet Three times a with meals day Carvedilol [facility] 17442264458 25 MG Orally Active 1 tablet Twice a day Imdur NDC 0 60 MG Orally Active 1 tablet Once a day in the morning Aspir-Low [facility] 21884987823 81 MG Orally Active 1 tablet Once a day Tamsulosin HCl [facility] 86471515635 0.4 MG Orally Active 1 capsule twice a day Results No Known Results Summary Purpose eClinicalWorks Submission
--- OUTSIDE RECORDS SUMMARY | 2019-12-15 16:18 | XMS REPORT ---
:1945 [facility] Address [address] [place] [address] [place] [id number] Care Team Providers Name Role Phone Unavailable [...]
--- OUTSIDE RECORDS SUMMARY | 2019-12-15 16:18 | XMS REPORT ---
[...] involving I25.709 Active coronary bypass graft of [place] heart with angina pectoris Problem Subclinical hypothyroidism [...]
[2019-12-15] MEDS ORDERED: IPRATROPIUM BROM 0.5MG/2.5ML ONE (17:06)
[2019-12-15] MEDS ORDERED: ALBUTEROL 2.5 MG/3 ML NEB SOL ONE (17:07)
[2019-12-15 17:13] LABS: Absolute Lymphocytes (CBC) 0.4 K/uL (0.7-4.9); Basophils % 0.9 % (0-1.3); Hematocrit 25.2 % (39.6-49.0); Lymphocytes % 6.6 % (15.3-44.8); MPV 9.9 fL (7.6-11.3)
--- NOTE | 2019-12-15 17:14 | RAD REPORT ---
EXAM DESCRIPTION: RAD - Chest Single View - 12/15/2019 4:34 pm CLINICAL HISTORY: DYSPNEA COMPARISON: Chest Single View dated 02/14/2016 TECHNIQUE: AP portable chest image was obtained 12/15/2019 4:34 pm . FINDINGS: No peripheral mass or consolidation. Interstitial markings are mildly prominent. Central v asculature is mildly prominent. Heart size is upper normal to slightly enlarged. Sternotomy wires are in place. Minimal bilateral pleural effusions are present. No pneumothorax. No acute bony abnormalit y seen. No acute aortic findings suspected. IMPRESSION: Mild CHF/volume overload.
--- NOTE | 2019-12-15 17:15 | ER ---
Nurse's Notes [facility] Name: Geronimo Hurtado Age: 74 yrs Sex: Male : 1945 Arrival Date: 12/15/2019 Time: 16:17 Bed 6 Private MD: Diagnosis: Other chest pain;End stage renal disease;Unspecified combined systolic (congestive) and diastolic (congestive) heart failure;Essential (primary) hypertension;Type 2 diabetes mellitus;Anemia, unspecified Presentation: 12/14 16:20 Chief complaint: Patient states: SOB on exertion started yesterday. Thought it will be ca1 better after dialysis but did not. Dialysis schedule M,W,F. Denies cough and fever. Coronavirus screen: The patient has NOT traveled to [place] in the past 14 days. The patient has NOT had contact with known and/or suspected case of Coronavirus. Ebola Screen: Patient negative for fever greater than or equal to 101.5 degrees Fahrenheit, and additional compatible Ebola Virus Disease symptoms Patient denies exposure to infectious person. Patient denies travel to an Ebola-affected area in the 21 days before illness onset. No symptoms or risks identified at this time. 16:20 Initial Sepsis Screen: Does the patient meet any 2 criteria? No. Patient's initial ca1 sepsis screen is negative. Does the patient have a suspected source of infection? No. Patient's initial sepsis screen is negative. Risk Assessment: Do you want to hurt yourself or someone else? Patient reports no desire to harm self or others. 16:20 Method Of Arrival: Wheelchair ca1 16:20 Acuity: LYNETTE 3 ca1 Triage Assessment: 16:23 General: Appears in no apparent distress. comfortable, Behavior is cooperative, bp appropriate for age, anxious. Pain: Denies pain. EENT: No deficits noted. Neuro: No deficits noted. Cardiovascular: No deficits noted. Respiratory: Reports shortness of breath Onset: The symptoms/episode began/occurred today, the patient reports symptoms have resolved. GI: No signs and/or symptoms were reported involving the gastrointestinal system. : No signs and/or symptoms were reported regarding the genitourinary system. Derm: No deficits noted. Musculoskeletal: No deficits noted. Historical: - Allergies: 16:21 No Known Allergies; bp - Home Meds: 16:21 tamsulosin 0.4 mg Oral cp24 1 cap once daily [Active]; magnesium oxide 400 mg Oral tab bp twice a day [Active]; isosorbide dinitrate 30 mg Oral tab 1 tab 2 times per day [Active]; Lantus 100 unit/mL Sub-Q soln [Active]; clopidogrel 75 mg Oral tab 1 tab once daily [Active]; carvedilol 25 mg Oral tab 1 tab 2 times per day [Active]; atorvastatin 10 mg Oral tab 1 tab once daily [Active]; aspirin 81 mg Oral chew [Active]; amlodipine 10 mg tab 1 tab once daily [Active]; - PMHx: 16:21 ESRD; DIALYSIS MWF; Diabetes - IDDM; bp - PSHx: 16:21 CABG; RUE GRAFT; bp - Immunization history:: Adult Immunizations up to date, Pneumococcal vaccine is up to date, Flu vaccine is up to date. - Social history:: Smoking status: Patient denies any tobacco usage or history of. - Family history:: not pertinent. Screenin:15 Abuse screen: Denies threats or abuse. Denies injuries from another. Nutritional bp screening: No deficits noted. Tuberculosis screening: No symptoms or risk factors identified. Fall Risk None identified. Assessment: 16:23 General: SEE TRIAGE NOTE. Cardiovascular: Rhythm is sinus rhythm. Respiratory: Airway bp is patent Respiratory effort is even, unlabored, Breath sounds are clear bilaterally. 18:00 Reassessment: DR DALAL AT B/S. bp 19:10 Reassessment: Patient appears in no apparent distress at this time. Patient and/or jb4 family updated on plan of care and expected duration. Pain level reassessed. Patient is alert, oriented x 3, equal unlabored respirations, skin warm/dry/pink. PT denies feeling short of breath, lung sounds are CTA bilaterally. Patient denies pain at this time. Patient states feeling better. 19:56 Reassessment: Patient appears in no apparent distress at this time. No changes from jb4 previously documented assessment. Patient and/or family updated on plan of care and expected duration. Pain level reassessed. 20:02 Reassessment: Attempted to call report, instructed to wait for call back. jb4 20:40 Reassessment: Patient appears in no apparent distress at this time. Patient and/or jb4 family updated on plan of care and expected duration. Pain level reassessed. Patient is alert, oriented x 3, equal unlabored respirations, skin warm/dry/pink. Report called to YENNI Mccarthy. Pt Transferred to room 207 via wheelchair. IV site dry and intact. No s/s of infiltration or phlebitis. denies pain, SOB, and dyspnea. Vital Signs: 16:20 BP 142 / 58; Pulse 64; Resp 24; Temp 98.6(O); Pulse Ox 100% on R/A; Weight 65.77 kg ca1 (R); Height 5 ft. 3 in. (160.02 cm) (R); 17:15 BP 157 / 49; Pulse 79; Resp 20; Pulse Ox 100% ; bp 18:21 BP 160 / 49; Pulse 73; Resp 15; Pulse Ox 100% ; bp 19:50 BP 138 / 44; Pulse 67; Resp 14; Temp 98.1(O); Pulse Ox 100% on R/A; jb4 16:20 Body Mass Index 25.68 (65.77 kg, 160.02 cm) ca1 ED Course: 16:15 Patient has correct armband on for positive identification. Bed in low position. Call bp light in reach. Side rails up X2. Adult w/ patient. 16:17 Patient arrived in ED. mr 16:18 Reinaldo Engel, YENNI is Primary Nurse. bp 16:19 Dandre Bosch MD is Attending Physician. gary 16:20 Arm band placed on right wrist. ca1 16:32 XRAY Chest (1 view) In Process Unspecified. EDMS 16:33 Triage completed. ca1 16:56 Inserted saline lock: 22 gauge in left forearm, using aseptic technique. Blood bp collected. 17:13 Davion Dalal DO is Hospitalizing Provider. gary 17:16 EKG done, by ED staff, reviewed by Dandre Bosch MD. dh3 20:40 No provider procedures requiring assistance completed. Patient admitted, IV remains in jb4 place. Administered Medications: 17:00 Drug: AtroVENT Aerosol 0.5 mg Route: Inhalation; bp 17:00 Drug: Albuterol 2.5 mg Route: Inhalation; bp 17:30 Drug: morphine 2 mg Route: IVP; Site: left forearm; bp 17:30 Drug: Zofran (Ondansetron) 4 mg Route: IVP; Site: left forearm; bp 17:30 Drug: Lasix 100 mg Route: IVP; Site: left forearm; bp 17:30 Drug: Nitro-Bid Ointment 2 % 1 inches Route: Transdermal; Site: anterior chest wall; bp 17:30 Drug: Tylenol 650 mg Route: PO; bp 18:21 Not Given (Physician Discretion; CANCELLED BY DR DALAL): Heparin (NH-Bolus No bp thrombolytic) - HEParin 60 units/kg IVP once; Max 5000 units 18:21 Not Given (Physician Discretion; CANCELLED PER DR DALAL): Heparin (NH Drip) 12 bp units/kg/hr - (HEParin 28904 units, D5W 500 ml) IV at calculated rate Per protocol; Max initial rate 1000 units/hr Outcome: 17:14 Decision to Hospitalize by Provider. [facility] 20:40 Admitted to Tele accompanied by tech, via wheelchair, with chart, Report called to cyrus Mccarthy RN 20:40 Condition: stable 20:40 Discharge instructions given to patient, Instructed on the need for admit, Demonstrated understanding of instructions. 20:42 Patient left the ED. cyrus Signatures: Dispatcher [employer] EDDandre Macias MD MD cha Rivera, Mary mr ArielJesús RN RN jb4 Kandy Wong [facility] Reinaldo Engel RN RN bp Felipa Blanca RN RN ca1 Corrections: (The following items were deleted from the chart) 16:36 16:20 BP 142 / 58; Pulse 64bpm; Resp 24bpm; Pulse Ox 100% RA; 65.77 kg Reported; Height ca1 5 ft. 3 in. Reported; BMI: 25.6; ca1 03/03 04:12 03/02 20:40 Reassessment: Patient appears in no apparent distress at this time. Patient quinn4 and/or family updated on plan of care and expected duration. Pain level reassessed. Patient is alert, oriented x 3, equal unlabored respirations, skin warm/dry/pink. Report called to YENNI Mccarthy
--- NOTE | 2019-12-15 17:15 | EDPHYS ---
Physician Documentation [facility] Name: Geronimo Hurtado Age: 74 yrs Sex: Male : 1945 Arrival Date: 12/15/2019 Time: 16:17 Bed 6 Private MD: ED Physician Dandre Bosch HPI: 12/14 16:27 This 74 yrs old Male presents to ER via Unassigned with complaints of gary Breathing Difficulty. 16:27 The patient has shortness of breath with light activity. Onset: The symptoms/episode gary began/occurred just prior to arrival, this morning. Duration: The symptoms are continuous, and are steadily getting worse. The patient's shortness of breath is aggravated by nothing. Associated signs and symptoms: The patient has no apparent associated signs or symptoms. The patient has not experienced similar symptoms in the past. Historical: - Allergies: 16:21 No Known Allergies; bp - Home Meds: 16:21 tamsulosin 0.4 mg Oral cp24 1 cap once daily [Active]; magnesium oxide 400 mg Oral tab bp twice a day [Active]; isosorbide dinitrate 30 mg Oral tab 1 tab 2 times per day [Active]; Lantus 100 unit/mL Sub-Q soln [Active]; clopidogrel 75 mg Oral tab 1 tab once daily [Active]; carvedilol 25 mg Oral tab 1 tab 2 times per day [Active]; atorvastatin 10 mg Oral tab 1 tab once daily [Active]; aspirin 81 mg Oral chew [Active]; amlodipine 10 mg tab 1 tab once daily [Active]; - PMHx: 16:21 ESRD; DIALYSIS MWF; Diabetes - IDDM; bp - PSHx: 16:21 CABG; RUE GRAFT; bp - Immunization history:: Adult Immunizations up to date, Pneumococcal vaccine is up to date, Flu vaccine is up to date. - Social history:: Smoking status: Patient denies any tobacco usage or history of. - Family history:: not pertinent. ROS: 16:27 Constitutional: Negative for fever, chills, and weight loss, Eyes: Negative for injury, gary pain, redness, and discharge, ENT: Negative for injury, pain, and discharge, Neck: Negative for injury, pain, and swelling, Cardiovascular: Negative for chest pain, palpitations, and edema, Abdomen/GI: Negative for abdominal pain, nausea, vomiting, diarrhea, and constipation, Back: Negative for injury and pain, : Negative for injury, bleeding, discharge, and swelling, MS/Extremity: Negative for injury and deformity, Skin: Negative for injury, rash, and discoloration, Neuro: Negative for headache, weakness, numbness, tingling, and seizure, Psych: Negative for depression, anxiety, suicide ideation, homicidal ideation, and hallucinations, Allergy/Immunology: Negative for hives, rash, and allergies, Endocrine: Negative for neck swelling, polydipsia, polyuria, polyphagia, and marked weight changes, Hematologic/Lymphatic: Negative for swollen nodes, abnormal bleeding, and unusual bruising. 16:27 Respiratory: Positive for cough, shortness of breath, at rest. Exam: 16:28 Constitutional: This is a well developed, well nourished patient who is awake, alert, gary and in no acute distress. Head/Face: Normocephalic, atraumatic. Eyes: Pupils equal round and reactive to light, extra-ocular motions intact. Lids and lashes normal. Conjunctiva and sclera are non-icteric and not injected. Cornea within normal limits. Periorbital areas with no swelling, redness, or edema. ENT: Nares patent. No nasal discharge, no septal abnormalities noted. Tympanic membranes are normal and external auditory canals are clear. Oropharynx with no redness, swelling, or masses, exudates, or evidence of obstruction, uvula midline. Mucous membranes moist. Neck: Trachea midline, no thyromegaly or masses palpated, and no cervical lymphadenopathy. Supple, full range of motion without nuchal rigidity, or vertebral point tenderness. No Meningismus. Chest/axilla: Normal chest wall appearance and motion. Nontender with no deformity. No lesions are appreciated. Cardiovascular: Regular rate and rhythm with a normal S1 and S2. No gallops, murmurs, or rubs. Normal PMI, no JVD. No pulse deficits. Abdomen/GI: Soft, non-tender, with normal bowel sounds. No distension or tympany. No guarding or rebound. No evidence of tenderness throughout. Back: No spinal tenderness. No costovertebral tenderness. Full range of motion. Male : Normal genitalia with no discharge or lesions. Skin: Warm, dry with normal turgor. Normal color with no rashes, no lesions, and no evidence of cellulitis. MS/ Extremity: Pulses equal, no cyanosis. Neurovascular intact. Full, normal range of motion. Neuro: Awake and alert, GCS 15, oriented to person, place, time, and situation. Cranial nerves II-XII grossly intact. Motor strength 5/5 in all extremities. Sensory grossly intact. Cerebellar exam normal. Normal gait. Psych: Awake, alert, with orientation to person, place and time. Behavior, mood, and affect are within normal limits. 16:28 Respiratory: mild respiratory distress is noted, Respirations: normal, Breath sounds: decreased breath sounds, that are mild, rhonchi, are not appreciated, stridor, is not appreciated, + upper airway congestion. 16:29 Musculoskeletal/extremity: DVT Exam: No signs of deep vein thrombosis. no pain, no gary swelling, no tenderness, negative Homans' sign noted on exam, no appreciated bluish discoloration, no erythema, no increased warmth. Vital Signs: 16:20 BP 142 / 58; Pulse 64; Resp 24; Temp 98.6(O); Pulse Ox 100% on R/A; Weight 65.77 kg ca1 (R); Height 5 ft. 3 in. (160.02 cm) (R); 17:15 BP 157 / 49; Pulse 79; Resp 20; Pulse Ox 100% ; bp 18:21 BP 160 / 49; Pulse 73; Resp 15; Pulse Ox 100% ; bp 19:50 BP 138 / 44; Pulse 67; Resp 14; Temp 98.1(O); Pulse Ox 100% on R/A; jb4 16:20 Body Mass Index 25.68 (65.77 kg, 160.02 cm) ca1 MDM: 16:19 Patient medically screened. [facility] 16:29 Data reviewed: vital signs, nurses notes, lab test result(s), EKG, radiologic studies, [facility] plain films. 12/14 16:22 Order name: Basic Metabolic Panel [facility] 12/14 16:22 Order name: CBC with Diff; Complete Time: 17:48 [facility] 12/14 16:22 Order name: LFT's [facility] 12/14 16:22 Order name: Magnesium [facility] 12/14 16:22 Order name: NT PRO-BNP [facility] 12/14 16:22 Order name: PT-INR; Complete Time: 18:00 [facility] 12/14 16:22 Order name: Troponin (emerg Dept Use Only) [facility] 12/14 16:22 Order name: XRAY Chest (1 view); Complete Time: 17:48 [facility] 12/14 16:27 Order name: ABG; Complete Time: 17:48 [facility] 12/14 17:52 Order name: Ptt, Activated [facility] 12/14 16:22 Order name: EKG; Complete Time: 16:22 [facility] 12/14 16:22 Order name: Cardiac monitoring; Complete Time: 16:26 [facility] 12/14 16:22 Order name: EKG - Nurse/Tech; Complete Time: 17:18 [facility] 12/14 16:22 Order name: IV Saline Lock; Complete Time: 16:56 [facility] 12/14 16:22 Order name: Labs collected and sent; Complete Time: 16:56 [facility] 12/14 16:22 Order name: O2 Per Protocol; Complete Time: 16:25 [facility] 12/14 16:22 Order name: O2 Sat Monitoring; Complete Time: 16:25 [facility] Administered Medications: 17:00 Drug: AtroVENT Aerosol 0.5 mg Route: Inhalation; bp 17:00 Drug: Albuterol 2.5 mg Route: Inhalation; bp 17:30 Drug: morphine 2 mg Route: IVP; Site: left forearm; bp 17:30 Drug: Zofran (Ondansetron) 4 mg Route: IVP; Site: left forearm; bp 17:30 Drug: Lasix 100 mg Route: IVP; Site: left forearm; bp 17:30 Drug: Nitro-Bid Ointment 2 % 1 inches Route: Transdermal; Site: anterior chest wall; bp 17:30 Drug: Tylenol 650 mg Route: PO; bp 18:21 Not Given (Physician Discretion; CANCELLED BY DR DALAL): Heparin (DC-Bolus No bp thrombolytic) - HEParin 60 units/kg IVP once; Max 5000 units 18:21 Not Given (Physician Discretion; CANCELLED PER DR DALAL): Heparin (DC Drip) 12 bp units/kg/hr - (HEParin 23759 units, D5W 500 ml) IV at calculated rate Per protocol; Max initial rate 1000 units/hr Disposition: 12/15/19 17:14 Hospitalization ordered by Davion Dalal for Inpatient Admission. Preliminary diagnosis are Other chest pain, End stage renal disease, Unspecified combined systolic (congestive) and diastolic (congestive) heart failure, Essential (primary) hypertension, Type 2 diabetes mellitus, Anemia, unspecified. - Bed requested for Telemetry/MedSurg (Inpatient). - Status is Inpatient Admission. jb4 - Condition is Stable. - Problem is new. - Symptoms have improved. Signatures: Dispatcher [employer] EDMS Gerri Rosales RN RN mw Anderson, Corey, MD MD cha Bryson, James, RN RN jb4 Reinaldo Engel RN RN bp Felipa Blanca RN RN ca1 Corrections: (The following items were deleted from the chart) 17:52 17:14 Hospitalization Ordered by Davion Dalal DO for Inpatient Admission. Preliminary gary diagnosis is Other chest pain; End stage renal disease; Unspecified combined systolic (congestive) and diastolic (congestive) heart failure; Essential (primary) hypertension; Type 2 diabetes mellitus. Bed requested for Telemetry/MedSurg (Inpatient). Status is Inpatient Admission. Condition is Stable. Problem is new. Symptoms have improved. gary 19:34 17:52 12/15/2019 17:14 Hospitalization Ordered by Davion Dalal DO for Inpatient Admission. Preliminary diagnosis is Other chest pain; End stage renal disease; Unspecified combined systolic (congestive) and diastolic (congestive) heart failure; Essential (primary) hypertension; Type 2 diabetes mellitus; Anemia, unspecified. Bed requested for Telemetry/MedSurg (Inpatient). Status is Inpatient Admission. Condition is Stable. Problem is new. Symptoms have improved. gary 20:42 19:34 12/15/2019 17:14 Hospitalization Ordered by Davion Dalal DO for Inpatient jb4 Admission. Preliminary diagnosis is Other chest pain; End stage renal disease; Unspecified combined systolic (congestive) and diastolic (congestive) heart failure; Essential (primary) hypertension; Type 2 diabetes mellitus; Anemia, unspecified. Bed requested for Telemetry/MedSurg (Inpatient). Status is Inpatient Admission. Condition is Stable. Problem is new. Symptoms have improved.
[2019-12-15 17:27] LABS: Arterial Blood Carboxyhemoglob 0.9 % (0-1.5); Blood O2 Saturation 98.1 % (92-98.5)
[2019-12-15 17:34] LABS: Protime INR 1.24
[2019-12-15] MEDS ORDERED: NITROGLYCERIN 1 GM PKT TD ONE (17:44)
[2019-12-15] MEDS ORDERED: ACETAMINOPHEN 325 MG TABLET ONE (17:44)
[2019-12-15] MEDS ORDERED: MORPHINE 2 MG/ML SYR ONE (17:45)
[2019-12-15] MEDS ORDERED: ONDANSETRON 4 MG/2 ML VIAL ONE (17:45)
[2019-12-15] MEDS ORDERED: FUROSEMIDE 100 MG/10 ML VIAL IV ONE (17:45)
[2019-12-15 17:47] LABS: Albumin 3.2 g/dL (3.4-5.0); Bilirubin Direct 0.2 mg/dL (0-0.2); Bilirubin Total 0.6 mg/dL (0.2-1.0); Magnesium 2.2 mg/dL (1.8-2.4); Potassium 4.1 mmol/L (3.5-5.1); Protein, Total 6.7 g/dL (6.4-8.2); Troponin (Emerg Dept Use Only) 0.16 ng/mL (0.0-0.045)
--- NOTE | 2019-12-15 18:34 | P.HP ---
Certification for Inpatient Patient admitted to: Observation With expected LOS: <2 Midnights Patient will require the following post-hospital care: None Practitioner: I am a practitioner with admitting privileges, knowledge of patient current condition, hospital course, and medical plan of care. Services: Services provided to patient in accordance with Admission requirements found in Title 42 Section 412.3 of the Code of Federal Regulations Patient History Date of Service: 12/15/19 Primary Care Provider: Dr. Don Joyce; Nephrology-Dr. Gaitan; Card-Dr. Salas Reason for admission: SOB History of Present Illness: 74-year-old male with history of end-stage renal disease on hemodialysis, hypertension and hypothyroidism. Patient presented with shortness of breath. He has been having shortness of breath over the past several days. He did receive dialysis today. He may not be properly addressing his fluid intake and salt intake. He denies any fever, cough, nausea or vomiting. Patient came to the ER for further evaluation. In the ER patient evaluated. Chest x-ray showed some volume overload. White count 6.2, hemoglobin 8.2. Sodium 137, potassium 4.1, BUN of 42, creatinine 5.4. GFR 10. Glucose 255. Troponin 0.16 with a BNP elevated greater than 74, 000. Patient was admitted for further evaluation. When I saw the patient ER, he appeared comfortable. Room-air saturations within normal range. Edema to the lower extremities noted. Patient admitted for observation. Allergies No Known Allergies Allergy (Verified 11/03/19 08:56) Home medications list reviewed: Yes Home Medications: Atorvastatin Calcium [Lipitor] 40 mg PO DAILY AT SUPPER 06/09/14 Insulin Glargine,Hum.rec.anlog [Lantus] 20 - 25 units SQ DAILY 06/09/14 Isosorbide Mononitrate [Isosorbide Mononitrate ER] 30 mg PO BID 06/09/14 Levothyroxine Sodium [Tirosint] 25 mcg PO DAILY 06/09/14 Tamsulosin [Flomax*] 0.4 mg PO BID 06/09/14 Amlodipine [Norvasc*] 10 mg PO DAILY AT SUPPER 09/30/14 Clopidogrel Bisulfate [Plavix*] 75 mg PO DAILY AT SUPPER 09/30/14 Magnesium Oxide [Mag 0X*] 400 mg PO DAILY AT SUPPER 11/16/15 carvediloL [Coreg*] 25 mg PO BID 6AM 6PM 11/16/15 cloNIDine HCL [Catapres*] 0.1 mg PO BID #60 tab 11/17/15 - Past Medical/Surgical History Diabetic: Yes -: HTN -: Hyperlipidemia -: ESRD -: CAD -: Hypothyroidism -: Hyperlipidemia -: Spinal stenosis of L spine -: DDD of the C spine. -: Anemia of chronic disease -: GERD -: HEART STENTS x1 -: AV graft R FA -: Benjamin cataracts sx Psychosocial/ Personal History: - Family History Mother -: Heart disease, Hypertension, Diabetes Father -: Heart disease - Social History Smoking Status: Never smoker Alcohol use: No CD- Drugs: No Caffeine use: Yes Place of Residence: Home Review of Systems General: As per HPI Eyes: Unremarkable Respiratory: Shortness of Breath, As per HPI Cardiovascular: Unremarkable Gastrointestinal: Unremarkable Genitourinary: Unremarkable Musculoskeletal: Pedal edema, As per HPI Integumentary: Unremarkable Neurological: Unremarkable Lymphatics: Unremarkable Physical Examination - Physical Exam General: Alert, In no apparent distress, Oriented x3, Cooperative HEENT: Atraumatic, Normocephalic Neck: Supple Respiratory: Crackles/rales (Crackles to the bases) Cardiovascular: Normal pulses, Regular rate/rhythm Gastrointestinal: Normal bowel sounds, Soft and benign, Non-distended, No tenderness, No masses, No rebound, No guarding Musculoskeletal: No tenderness, No warmth Integumentary: Tenderness/swelling (Mild edema to the lower extremities bilateral) Neurological: Normal speech, Normal strength at 5/5 x4 extr, Normal tone, Normal affect - Studies Laboratory Data (last 24 hrs) 12/15/19 16:50: APTT 30.7 12/15/19 16:50: PT 14.5 H, INR 1.24 12/15/19 16:50: WBC 6.2, Hgb 8.2 L, Hct 25.2 L, Plt Count 156 12/15/19 16:50: Sodium 137, Potassium 4.1, BUN 42 H, Creatinine 5.46 H*, Glucose 285 H, Magnesium 2.2, Total Bilirubin 0.6, AST 15, ALT 20, Alkaline Phosphatase 134 H Assessment and Plan - Plan Impression: Shortness of breast secondary to acute on chronic diastolic CHF End-stage renal disease on hemodialysis Hypertension CAD Diabetes mellitus type 2 Anemia of chronic disease Plan: Shortness of breast secondary to acute on chronic diastolic CHF: Patient will admitted for further evaluation and observation. Will start IV Lasix. Patient will require dialysis again tomorrow. Will discuss with nephrology. Will monitor cardiac enzymes and troponin. Will obtain echocardiogram. Recheck chest x-ray tomorrow. Anticipate discharge after dialysis tomorrow. End-stage renal disease on hemodialysis: Patient with some volume overload. Will teach on 1500 cc per day fluid restriction. Will provide Lasix IV. Will require dialysis again tomorrow. Nephrology consulted. Hypertension: Will need to obtain home medication. CAD: Continue aspirin. Diabetes mellitus type 2: Will monitor Accu-Cheks and provide sliding scale. Anemia of chronic disease: This appears chronic. Will monitor closely. Discharge Plan: Home Plan to discharge in: 24 Hours - Advance Directives Does patient have a Living Will: No Does patient have a Durable POA for Healthcare: No - Code Status/Comfort Care Code Status Assessed: Yes (Patient is full code) Time Spent Managing Pts Care (In Minutes): 55
[2019-12-15] MEDS ORDERED: ONDANSETRON 4 MG/2 ML VIAL IV PRN (20:51)
[2019-12-15] MEDS ORDERED: HYDRALAZINE HCL 20 MG/ML VIAL IV PRN (20:51)
[2019-12-15] MEDS ORDERED: ACETAMINOPHEN 500 MG TAB PO PRN (20:51)
[2019-12-15] MEDS ORDERED: GLUCAGON 1 MG/VIAL IM PRN (20:51)
[2019-12-15] MEDS ORDERED: D50W 25 GM/50 ML SYRINGE/VIAL IV PRN (20:51)
[2019-12-15] MEDS ORDERED: ATORVASTATIN 40 MG TAB PO SCH (21:00)
[2019-12-15] MEDS: INSULIN -REGULAR HUMAN 50 UNIT/0.5 ML ML SQ SCH (21:00)
[2019-12-15 21:07] VITALS: BMI 24.6
[2019-12-16 00:59] LABS: CKMB Creatine Kinase MB 1.5 ng/mL (0.3-3.6); Troponin I 0.17 ng/mL (0.0-0.045)
--- NOTE | 2019-12-16 05:55 | EKG ---
Test Date: 2019-12-15 Test Time: 17:16:38 Lead Nitrate Processor: SOM MEASUREMENT RESULTS: Intervals: Rate: 78 UT: 160 QRSD: 136 QT: 436 QTc: 497 [place]: P: 35 UT: 160 QRS: 16 T: 96 INTERPRETIVE STATEMENTS: Normal sinus rhythm Right bundle branch block Abnormal ECG Compared to ECG 02/14/2016 09:07:49 Sinus bradycardia no longer present Electronically Signed On 12-16-19 05:54:42 SLASHER MACHINE OPERATOR by Toni Sotelo
[2019-12-16 06:00] LABS: Absolute Lymphocytes (CBC) 0.4 K/uL (0.7-4.9); Basophils % 0.9 % (0-1.3); Hematocrit 24.7 % (39.6-49.0); Lymphocytes % 9.1 % (15.3-44.8); MPV 9.5 fL (7.6-11.3)
[2019-12-16 06:19] LABS: CKMB Creatine Kinase MB < 1.0 ng/mL (0.3-3.6); Creatine Phosphokinase 35 U/L (39-308); Troponin I 0.19 ng/mL (0.0-0.045)
[2019-12-16 06:28] LABS: Magnesium 2.2 mg/dL (1.8-2.4); Potassium 4.5 mmol/L (3.5-5.1)
[2019-12-16 06:39] LABS: Thyroid Stimulating Hormone 4.92 uIU/mL (0.360-3.740)
[2019-12-16] MEDS: INSULIN -REGULAR HUMAN 50 UNIT/0.5 ML ML SQ SCH ×2 (07:30→12:07)
--- NOTE | 2019-12-16 08:22 | P.DS ---
Admission Date: 12/15/19 Discharge Date: 12/16/19 Primary Care Provider: Dr. Don Joyce; Nephrology-Dr. Gaitan; Card-Dr. Salas Disposition: ROUTINE DISCHARGE Discharge Condition: GOOD Reason for Admission: SOB Consultations: Cardiology-Dr. Love Nephrology-Dr. Gaitan Procedures: ECHO: Ejection fraction 60%. Diastolic dysfunction noted. CXR: FINDINGS: No peripheral mass or consolidation. Interstitial markings are mildly prominent. Central vasculature is mildly prominent. Heart size is upper normal to slightly enlarged. Sternotomy wires are in place. Minimal bilateral pleural effusions are present. No pneumothorax. No acute bony abnormality seen. No acute aortic findings suspected. IMPRESSION: Mild CHF/volume overload. Medical Problem List: Shortness of breast secondary to acute on chronic diastolic CHF End-stage renal disease on hemodialysis Hypertension CAD Diabetes mellitus type 2 Anemia of chronic disease Hyperlipidemia BPH Brief History of Present Illness: 74-year-old male with history of end-stage renal disease on hemodialysis, hypertension and hypothyroidism. Patient presented with shortness of breath. He has been having shortness of breath over the past several days. He did receive dialysis today. He may not be properly addressing his fluid intake and salt intake. He denies any fever, cough, nausea or vomiting. Patient came to the ER for further evaluation. In the ER patient evaluated. Chest x-ray showed some volume overload. White count 6.2, hemoglobin 8.2. Sodium 137, potassium 4.1, BUN of 42, creatinine 5.4. GFR 10. Glucose 255. Troponin 0.16 with a BNP elevated greater than 74, 000. Patient was admitted for further evaluation. When I saw the patient ER, he appeared comfortable. Room-air saturations within normal range. Edema to the lower extremities noted. Patient admitted for observation. Hospital Course: Patient presented with shortness of breath with edema to the lower extremity. Patient with history of end-stage renal disease on hemodialysis, hypertension, CAD, diabetes and anemia of chronic disease. Patient also likely has underlying diastolic CHF. Patient received IV Lasix. Patient also received additional dialysis. Patient placed on a fluid restriction. Patient is not monitoring his fluid intake closely. Cardiology and nephrology were consulted. Echocardiogram obtained. Echo shows ejection fraction 60% with diastolic dysfunction. At discharge patient without significant chest pain, shortness of breath. No need for cardiac intervention. At discharge patient will continue with a 1500 cc per day fluid restriction and low-salt diet. Patient to monitor his weight daily. If his weight increases by more than 5 lb daily he is to contact nephrology to further address. Patient with end-stage renal disease on hemodialysis. Nephrology consulted to address shortness of breath. At discharge patient will continue with his dialysis 3 times a week. Patient will continue with a 1500 cc per day fluid restriction. Recommend no further use of nonsteroidal anti-inflammatories. Future medications will need to be renally dosed. Patient with hypertension. This has remained stable. At discharge he will continue with his current medications Norvasc 10 mg daily and carvedilol 25 mg 1 pill twice daily. Recommend to maintain blood pressures less 150/80. Further adjustment can be done by his PCP. Patient with diabetes mellitus type 2. This has remained stable. Recommend to maintain blood sugars less 140 fasting and less than 200 after meals. Further adjustment can be done by his PCP. Patient with history of CAD. This has remained stable. Troponin slightly elevated likely related to acute on chronic diastolic CHF. Cardiology was consulted. No cardiac intervention was required. Echocardiogram obtained. EF 60%. Continue with above recommendations. Patient will continue with isosorbide mononitrate 60 mg daily, aspirin 81 mg daily, and Brilinta 90 mg 1 pill twice daily Patient with anemia of chronic disease. This has remained stable. Recommend follow up with PCP and Nephrology to further monitor and address. Patient with history of BPH. At discharge will continue with Flomax 0.4 mg daily. Patient with hyperlipidemia. At discharge will continue with the before 40 mg daily. Vital Signs/Physical Exam: Temp Pulse Resp BP Pulse Ox 98.8 F 65 16 138/60 97 12/16/19 04:00 12/16/19 04:00 12/16/19 04:00 12/16/19 04:00 12/16/19 04:00 General: Alert, In no apparent distress, Oriented x3, Cooperative HEENT: Atraumatic Neck: Supple Respiratory: Crackles/rales (Less crackles to the bases. Good air movement bilateral) Cardiovascular: Normal pulses, Regular rate/rhythm Gastrointestinal: Normal bowel sounds, Soft and benign, Non-distended, No tenderness, No masses, No rebound, No guarding Musculoskeletal: No erythema, No tenderness, No warmth Integumentary: No erythema, No warmth, No cyanosis, Tenderness/swelling ( Improve swelling to the lower extremities.) Neurological: Normal speech, Normal strength at 5/5 x4 extr, Normal tone, Normal affect Laboratory Data at Discharge: WBC 4.6 K/uL (4.3-10.9) D 12/16/19 05:50 Hgb 8.0 g/dL (13.6-17.9) L 12/16/19 05:50 Hct 24.7 % (39.6-49.0) L 12/16/19 05:50 Plt Count 127 K/uL (152-406) L 12/16/19 05:50 PT 14.5 SECONDS (9.5-12.5) H 12/15/19 16:50 INR 1.24 12/15/19 16:50 APTT 30.7 SECONDS (24.3-36.9) 12/15/19 16:50 Sodium 138 mmol/L (136-145) 12/16/19 05:50 Potassium 4.5 mmol/L (3.5-5.1) 12/16/19 05:50 BUN 52 mg/dL (7-18) H 12/16/19 05:50 Creatinine 6.85 mg/dL (0.55-1.3) H* D 12/16/19 05:50 Glucose 183 mg/dL (74-106) H 12/16/19 05:50 Magnesium 2.2 mg/dL (1.8-2.4) 12/16/19 05:50 Total Bilirubin 0.6 mg/dL (0.2-1.0) 12/15/19 16:50 AST 15 U/L (15-37) 12/15/19 16:50 ALT 20 U/L (12-78) 12/15/19 16:50 Alkaline Phosphatase 134 U/L (45-117) H 12/15/19 16:50 Troponin I 0.19 ng/mL (0.0-0.045) H 12/16/19 05:50 Triglycerides 117 mg/dL (<150) 12/16/19 05:50 Cholesterol 73 mg/dL (<200) 12/16/19 05:50 HDL Cholesterol 27 mg/dL (40-60) L 12/16/19 05:50 Cholesterol/HDL Ratio 2.70 03/03/20 05:50 Home Medications: Amlodipine Besylate 1 tab PO DAILY 12/16/19 Aspirin 1 tab PO BEDTIME 12/16/19 Atorvastatin Calcium [Lipitor] 40 mg PO DAILY 12/16/19 Isosorbide Mononitrate [Isosorbide Mononitrate ER] 1 tab PO DAILY 12/16/19 Sevelamer Carbonate 1 tab PO TIDWM 12/16/19 Tamsulosin HCl 1 cap PO BEDTIME 12/16/19 Ticagrelor [Brilinta*] 1 tab PO BID 12/16/19 carvediloL [Carvedilol] 1 tab PO BID 12/16/19 Patient Discharge Instructions: 1. Recommend follow up with PCP in 1 week to follow up this hospitalization. 2. Patient presented with shortness of breath with edema to the lower extremity. Patient with history of end-stage renal disease on hemodialysis, hypertension, CAD, diabetes and anemia of chronic disease. Patient also likely has underlying diastolic CHF. Patient received IV Lasix. Patient also received additional dialysis. Patient placed on a fluid restriction. Patient is not monitoring his fluid intake closely. Cardiology and nephrology were consulted. Echocardiogram obtained. Echo shows ejection fraction 60% with diastolic dysfunction. At discharge patient without significant chest pain, shortness of breath. No need for cardiac intervention. At discharge patient will continue with a 1500 cc per day fluid restriction and low-salt diet. Patient to monitor his weight daily. If his weight increases by more than 5 lb daily he is to contact nephrology to further address. 3. Patient with end-stage renal disease on hemodialysis. Nephrology consulted to address shortness of breath. At discharge patient will continue with his dialysis 3 times a week. Patient will continue with a 1500 cc per day fluid restriction. Recommend no further use of nonsteroidal anti- inflammatories. Future medications will need to be renally dosed. 4. Patient with hypertension. This has remained stable. At discharge he will continue with his current medications Norvasc 10 mg daily and carvedilol 25 mg 1 pill twice daily. Recommend to maintain blood pressures less 150/80. Further adjustment can be done by his PCP. 5. Patient with diabetes mellitus type 2. This has remained stable. Recommend to maintain blood sugars less 140 fasting and less than 200 after meals. Further adjustment can be done by his PCP. 6. Patient with history of CAD. This has remained stable. Troponin slightly elevated likely related to acute on chronic diastolic CHF. Cardiology was consulted. No cardiac intervention was required. Echocardiogram obtained. EF 60%. Continue with above recommendations. Patient will continue with isosorbide mononitrate 60 mg daily, aspirin 81 mg daily, and Brilinta 90 mg 1 pill twice daily. 7. Patient with anemia of chronic disease. This has remained stable. Recommend follow up with PCP and Nephrology to further monitor and address. 8. Patient with history of BPH. At discharge will continue with Flomax 0.4 mg daily. 9. Patient with hyperlipidemia. At discharge will continue with the before 40 mg daily. Diet: ADA (2000 ADA diet with 1500 cc per day fluid restriction and low-salt diet) Activity: Ad imya Time spent managing pt's care (in minutes): 55
[2019-12-16] MEDS ORDERED: FUROSEMIDE 20 MG/ 2ML VIAL IV SCH (09:00)
[2019-12-16] MEDS ORDERED: ASPIRIN EC 81 MG TAB PO SCH (09:00)
--- NOTE | 2019-12-16 09:12 | RAD REPORT ---
EXAM DESCRIPTION: RAD - Chest Pa And Lat (2 Views) - 12/16/2019 9:06 am CLINICAL HISTORY: Follow up CHF COMPARISON: Chest Single View dated 12/15/2019 TECHNIQUE: Frontal and lateral views of the chest were obtained. FINDINGS: The lungs are clear of a peripheral mass or consolidation. Cardiomegaly, vascular engorgem ent and increased interstitial opacification are still present. Trachea is midline. Small bilateral pleural effusions are present. IMPRESSION: Mild CHF/volume overload findings similar to December 14 study.
[2019-12-16 11:40] VITALS: O2SAT 97
--- NOTE | 2019-12-16 13:03 | CON ---
Reason For Admission: Congestive heart failure. Reason For Consultation: Congestive heart failure. History Of Present Illness: Mr. Hurtado is a 74-year-old Latin-[place] male. He is a dialysis krystyna ent. He sees Dr. Salas for his cardiac care. He is status post coronary artery bypass surgery. H as a history of end-stage renal disease. He gets dialysis Sunday, Sunday, and Sunday. He has a h istory of diabetes. He came in with congestive heart failure, PND, orthopnea, pedal edema. No palpi tation. No syncope. He denied any chest pain, nausea, vomiting, or diaphoresis. He has improved dr morganatically with his present regimen after dialysis and he wants to go home today. Past Medical History: As stated above. Allergies: NONE. Review of Systems: Negative. Social History: Negative. Family History: Noncontributory. Medications: Tamsulosin, magnesium, Imdur 30 mg twice a day. He is on insulin, Plavix, Coreg 25 mg b.i.d. He takes atorvastatin 10 mg daily, aspirin, and amlodipine 10 mg daily. Physical Examination: Vital Signs: Stable, afebrile. HEENT: Negative. Neck: Supple with no bruit. Chest: Clear to auscultation and percussion. Cardiac: Revealed a regular rhythm and rate. No murmurs, gallops, or rubs. Abdomen: Benign. Extremities: Revealed no clubbing, cyanosis, or edema. Skin: Dry and intact. Psychologic: He was normal. Diagnostic Data: EKG shows right bundle-branch block. Chest x-ray showed mild CHF and volume overlo ad. Echocardiogram is pending. Echocardiogram that was done in 2016, showed an ejection fraction of 61% with some aortic sclerosis. His creatinine was 6.85. His hemoglobin is 8.0. His glucose was 1 83. His BNP was 74,104. Troponin was 0.16 and 0.19. Impression And Plan: 1.Acute on chronic diastolic congestive heart failure with elevated troponin and BNP secondary to th at. This is not an acute coronary artery syndrome. I agree with his present regimen and with dialys is, another echocardiogram is pending. Mr. Hurtado can go home whenever it is okay with Dr. Mikayla malcolm continuing his regular medical therapy and follow up with Dr. Salas in the near future. My onl y suggestion is to raise his atorvastatin dose to 40 or 80 mg because of his high risk profile. 2.Hypertension, well controlled. 3.Dyslipidemia, well controlled. 4.End-stage renal disease, on hemodialysis. HARLEY/AYE Voice ID: [id number] Report ID: [id number]
--- NOTE | 2019-12-16 13:21 | ECHO ---
HEIGHT: 5 ft 3 in WEIGHT: 139 lb 4.8 oz DATE OF STUDY: 12/16/[address]: Davion Degroot DO 2-DIMENSIONAL: YES M.MODE: YES DOPPLER: YES COLOR FLOW: YES TDS: PORTABLE: DEFINITY: BUBBLE STUDY: DIAGNOSIS: EVALUATE FOR ACUTE ON CHRONIC DIASTOLIC CONGESTIVE HEART FAILURE CARDIAC HISTORY: CATHERIZATION: YES SURGERY: YES PROSTHETIC VALVE: NO PACEMAKER: NO MEASUREMENTS (cm) DIASTOLIC (NORMALS) SYSTOLIC (NORMALS) IVSd 1.1 (0.6-1.2) LA Diam 3.8 (1.9-4.0) LVEF 42% LVIDd 4.8 (3.5-5.7) LVIDs 3.8 (2.0-3.5) %FS 20% LVPWd 1.1 (0.6-1.2) Ao Diam 2.9 (2.0-3.7) 2 DIMENSIONAL ASSESSMENT: RIGHT ATRIUM: NORMAL LEFT ATRIUM: NORMAL RIGHT VENTRICLE: NORMAL LEFT VENTRICLE: NORMAL TRICUSPID VALVE: NORMAL MITRAL VALVE: NORMAL PULMONIC VALVE: NORMAL AORTIC VALVE: SCLEROSIS PERICARDIAL EFFUSION: NONE AORTIC ROOT: NORMAL LEFT VENTRICULAR WALL MOTION: NORMAL EJECTION FRACTION. DECREASED LEFT VENTRICULAR COMPLIANCE. DOPPLER/COLOR FLOW: MILD MITRAL AND TRICUSPID REGURGITATION. RIGHT VENTRICULAR SYSTOLIC PRESSURE 36 mmHg. COMMENTS: NORMAL EJECTION FRACTION. DECREASED LEFT VENTRICULAR COMPLIANCE. AORTIC SCLEROSIS NO STENOSIS. MILD MITRAL AND TRICUSPID REGURGITATION. RIGHT VENTRICULAR SYSTOLIC PRESSURE 36 mmHg. TECHNOLOGIST: KEV BASHIR
[2019-12-16 14:00] VITALS: TEMP 97.6
--- NOTE | 2019-12-16 14:57 | CON ---
Date of Consultation: 12/16/2019 Reason For Consultation: Elevated BUN and creatinine, over volume, end-stage renal disease. History Of Present Illness: This is a pleasant 74-year-old gentleman, well known to me from dialysis with significant past medical history of diabetes complicated with neuropathy, nephropathy, hyperten sabino, hyperlipidemia, end-stage renal disease, on dialysis Sunday, Sunday, Sunday at [facility], coronary artery disease, the patient came to the hospital after dialysis complaining from shortness of breath. We managed to remove yesterday 3.5 L. Patient was given Lasix. His shortness of breath has been subsided. Patient denied any fever, any chills. Denied any chest pain. Workup f or the patient showed cardiomegaly with congestion. Past Medical History: Includes: 1.Hypertension. 2.Hyperlipidemia. 3.End-stage renal disease, on hemodialysis Sunday, Sunday, Sunday through a right arm AV fistula. 4.Diabetes complicated with neuropathy and nephropathy. Allergies: NO KNOWN DRUG ALLERGIES. Social History: Ex-smoker. Denied alcohol. Denied drug abuse. Past Surgical History: AV fistula creation. Family History: Positive for diabetes, hypertension, and coronary artery disease. Medications: Home medications include aspirin, atorvastatin, Lasix, hydralazine. Current medications in the hospital include atorvastatin, Lasix, hydralazine. Review of Systems: Head and Neck: No red eye. No ear pain. GI: No nausea, no vomiting. : No polyuria, no dysuria, no hematuria. Dolphin Researcher: Not applicable. Respiratory: Has shortness of breath. Cardiovascular: Has chest tightness. Endocrine: No polydipsia. Skin: No rash. Neuro: Has neuropathy. Musculoskeletal: No joint pain. Physical Examination: Vital Signs: When I saw the patient, blood pressure of 159/69, pulse of 67, afebrile. Chest: Crackles bilateral base. Heart: S1, S2. Systolic murmur. Abdomen: Soft, nontender. Extremities: No edema. Neuro: Alert, oriented x3. No focal. No tremor. Laboratory Data: WBC 4.6, H and H 8/24.7, and platelets 127. Sodium 138, potassium 4.5, bicarb 24, BUN 52, creatinine 6.8, calcium 7.7, magnesium 2.2. Assessment And Plan: 1.End-stage renal disease with over volume. I am going to go ahead and do extra dialysis today. We will do sequential and we will follow up the patient. 2.Hypertension, controlled, optimal. We will utilize blood pressure for more ultrafiltration. 3.Diabetes as by Primary. 4.Coronary artery disease. No acute insults. To follow up with his internet salesperson as outpatient. 5.Anemia of chronic kidney disease. Continue erythropoiesis-stimulating agent. Case discussed with the patient, verbalized understanding. Patient cleared from the renal standpoint for discharge planning after dialysis. REECE Voice ID: [id number] Report ID: [id number]
[2019-12-16 17:26] VITALS: BP 164/74
--- NOTE | 2019-12-17 09:05 | EKG ---
Test Date: 2019-12-15 Test Time: 21:53:47 Technologist Infectious Disease: RT-O MEASUREMENT RESULTS: Intervals: Rate: 66 LA: 168 QRSD: 132 QT: 470 QTc: 492 [place]: P: 34 LA: 168 QRS: 19 T: 91 INTERPRETIVE STATEMENTS: Normal sinus rhythm Right bundle branch block Abnormal ECG Compared to ECG 12/15/2019 17:16:38 No significant changes Electronically Signed On 12-17-19 09:04:17 FIBERGLASS BOAT MAKER by Toni Sotelo
== END 2019-12-16 16:30 | disposition home or self-care (01) ==
LOC: ER 16:15 → ERHOLD 18:22 → 2ND 20:11
PROVIDERS: ADMIT Family Medicine; ATTEND Family Medicine
PROC: 5A1D70Z Performance of Urinary Filtration, Intermittent, Less than 6 Hours Per Day (ICD-10-PCS; principal; 2019-12-16)
DX: I50.33 Acute on chronic diastolic (congestive) heart failure (principal); N18.6 End stage renal disease; E03.9 Hypothyroidism, unspecified; I25.10 Atherosclerotic heart disease of native coronary artery without angina pectoris; E78.5 Hyperlipidemia, unspecified; D63.1 Anemia in chronic kidney disease; K21.9 Gastro-esophageal reflux disease without esophagitis; I13.2 Hypertensive heart and chronic kidney disease with heart failure and with stage 5 chronic kidney disease, or end stage renal disease; N40.0 Benign prostatic hyperplasia without lower urinary tract symptoms; Z99.2 Dependence on renal dialysis
CPT/HCPCS: 93005 ×2; 93306; 85025 ×2; 80048 ×2; 36415; 83735 ×2; 82550 ×2; 85610; 80061; 82947 ×3; 80076; 85730; 84443; 84484 ×3; 82553 ×2; 84439; 83880; 71045; 71046; 82805; 96375; 96374; 99285; 90935; J1940; J2270; J2405; G0257; G0378 ×3

== ENCOUNTER 2019-12-24 18:06 | Inpatient (IN) | payer OTHER ==
--- OUTSIDE RECORDS SUMMARY | 2019-12-24 18:08 | XMS REPORT ---
[...] involving I25.709 Active coronary bypass graft of [place] heart with angina pectoris Problem Subclinical hypothyroidism E03.9 Active Problem 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 Assessment Coronary artery disease involving I25.709 Active coronary bypass graft of [place] heart with angina pectoris Problem Obesity E66.9 Active Problem Hypertension I10 Active Problem End stage renal disease N18.6 Active Problem Coronary artery disease I25.10 Active Medications Medication Code Code Instructions Start End Status Dosage System Date Date Oxybutynin NDC 42684103918 5 MG Orally Active 1 tablet Chloride Twice a day Amlodipine [facility] 87301650047 10 MG Orally Active 1 tablet Besylate Once a day Sertraline HCl [facility] 98780254925 25 MG Orally Active 1 tablet Once a day Imdur NDC 0 60 MG Orally Active 1 tablet Once a day in the morning Aspir-Low [facility] 55761683177 81 MG Orally Active 1 tablet Once a day Sevelamer HCl [facility] 35288606865 800 MG Orally Active 1 tablet Three times a with meals day Coreg [facility] 80956727091 25 MG Orally Active not defined Lantus [facility] 78047930346 100 UNIT/ML Active inject 15 Subcutaneous units Once a day Bumetanide [facility] 18271355187 2 MG Orally BID Active 1 tab Lisinopril [facility] 97515068599 40 MG Orally Active 1 tablet Once a day Plavix [facility] 66059563659 75 MG Orally Inactive 1 tablet Once a day Nitroglycerin [facility] 29185619939 0.4 MG Active as Sublingual directed HydrALAZINE HCl [facility] 72023574889 50 MG Orally Active 1 tablet Three times a with food day Lorazepam [facility] 38778906381 0.5 MG Orally Active 1 tablet every 6 hrs as needed Lipitor [facility] 79265622124 40 MG Orally Active 1 tablet Once a day Carvedilol [facility] 45880565603 25 MG Orally Active 1 tablet Twice a day Brilinta [facility] 50325994843 90 MG Orally Active 1 tablet Twice a day Norvasc [facility] 01454994500 10 MG Orally Active 1 tablet Once a day Tamsulosin HCl [facility] 27559464881 0.4 MG Orally Active 1 capsule twice a day Dialyvite 800 [facility] 56186591465 0.8 MG Orally Active 1 tablet Once a day Atorvastatin [facility] 25919060165 40 MG Orally Active 1 tablet Calcium Once a day Magnesium Oxide [facility] 29994793508 400 MG Orally Active 1 tablet Once a day as needed Results No Known Results Summary Purpose eClinicalWorks Submission
--- OUTSIDE RECORDS SUMMARY | 2019-12-24 18:09 | XMS REPORT ---
[...] involving I25.709 Active coronary bypass graft of [place] heart with angina pectoris Problem Subclinical hypothyroidism [...]
--- OUTSIDE RECORDS SUMMARY | 2019-12-24 18:09 | XMS REPORT ---
[...] involving I25.709 Active coronary bypass graft of [place] heart with angina pectoris Problem Subclinical hypothyroidism E03.9 Active Problem 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 Assessment Coronary artery disease involving I25.709 Active coronary bypass graft of [place] heart with angina pectoris Problem Obesity E66.9 Active Problem Hypertension I10 Active Problem End stage renal disease N18.6 Active Problem Coronary artery disease I25.10 Active Medications Medication Code Code Instructions Start End Status Dosage System Date Date Coreg [facility] 35559622915 25 MG Orally Active not defined Lantus [facility] 02041545559 100 UNIT/ML Active inject 15 Subcutaneous units Once a day Lipitor [facility] 92316785911 40 MG Orally Active 1 tablet Once a day Magnesium Oxide [facility] 87225549697 400 MG Orally Active 1 tablet Once a day as needed Plavix [facility] 98948299121 75 MG Orally Inactive 1 tablet Once a day Atorvastatin [facility] 80615928386 40 MG Orally Active 1 tablet Calcium Once a day Dialyvite 800 [facility] 08132972097 0.8 MG Orally Active 1 tablet Once a day HydrALAZINE HCl [facility] 66061195427 50 MG Orally Active 1 tablet Three times a with food day Sertraline HCl [facility] 35022011084 25 MG Orally Active 1 tablet Once a day Nitroglycerin [facility] 54039765132 0.4 MG Active as Sublingual directed Bumetanide [facility] 09295318636 2 MG Orally BID Active 1 tab Lorazepam [facility] 49705545931 0.5 MG Orally Active 1 tablet every 6 hrs as needed Oxybutynin [facility] 11857159480 5 MG Orally Active 1 tablet Chloride Twice a day Brilinta [facility] 88181057736 90 MG Orally Active 1 tablet Twice a day Lisinopril [facility] 02189848111 40 MG Orally Active 1 tablet Once a day Norvasc [facility] 49837477702 10 MG Orally Active 1 tablet Once a day Sevelamer HCl [facility] 30581570858 800 MG Orally Active 1 tablet Three times a with meals day Carvedilol [facility] 89889732645 25 MG Orally Active 1 tablet Twice a day Imdur NDC 0 60 MG Orally Active 1 tablet Once a day in the morning Aspir-Low [facility] 10891110727 81 MG Orally Active 1 tablet Once a day Tamsulosin HCl [facility] 55834973602 0.4 MG Orally Active 1 capsule twice a day Results No Known Results Summary Purpose eClinicalWorks Submission
--- OUTSIDE RECORDS SUMMARY | 2019-12-24 18:09 | XMS REPORT ---
:1945 [facility] Address [address] [place] [address] [place] [id number] Care Team Providers Name Role Phone Unavailable [...]
--- NOTE | 2019-12-24 18:53 | RAD REPORT ---
EXAM DESCRIPTION: Brandon Single View12/24/2019 6:38 pm CLINICAL HISTORY: Chest pain COMPARISON: November 2019 FINDINGS: Mild bilateral interstitial lung opacities The heart is mildly enlarged. Postsurgical changes involve the chest. IMPRESSION: Mild CHF
[2019-12-24] MEDS ORDERED: MORPHINE 2 MG/ML SYR ONE (18:57)
[2019-12-24] MEDS ORDERED: ONDANSETRON 4 MG/2 ML VIAL ONE (18:57)
[2019-12-24 19:08] LABS: Absolute Lymphocytes (CBC) 0.4 K/uL (0.7-4.9); Basophils % 0.8 % (0-1.3); Hematocrit 28.3 % (39.6-49.0); Lymphocytes % 8.2 % (15.3-44.8); MPV 9.7 fL (7.6-11.3); RBC Red Blood Cell Count 2.85 M/uL (4.33-5.43)
[2019-12-24 19:09] LABS: Protime INR 1.13
[2019-12-24 19:24] LABS: Albumin 3.4 g/dL (3.4-5.0); Bilirubin Direct 0.1 mg/dL (0-0.2); Bilirubin Total 0.6 mg/dL (0.2-1.0); Magnesium 2.2 mg/dL (1.8-2.4); Potassium 4.1 mmol/L (3.5-5.1); Protein, Total 7.1 g/dL (6.4-8.2); Troponin (Emerg Dept Use Only) 0.05 ng/mL (0.0-0.045)
[2019-12-24] MEDS ORDERED: INSULIN -REGULAR HUMAN 50 UNIT/0.5 ML ML ONE (19:54)
--- NOTE | 2019-12-24 20:10 | EDPHYS ---
Physician Documentation [facility] Name: Geronimo Hurtado Age: 74 yrs Sex: Male : 1945 Arrival Date: 12/24/2019 Time: 18:08 Bed 15 Private MD: ED Physician Tong Cummings HPI: 12/23 18:30 This 74 yrs old Male presents to ER via Ambulatory with complaints of Chest cp Pain, Shortness Of Breath. 18:30 The patient or guardian reports chest pain that is located primarily in the anterior cp chest wall. 18:30 Onset: today, at 13:00. Associated signs and symptoms: Pertinent positives: shortness cp of breath, Pertinent negatives: abdominal pain, lower extremity pain, lower extremity swelling. 18:30 The chest pain is described as aching. cp 18:30 Duration: The patient or guardian reports a single episode, that is still ongoing, and cp unchanged. Severity of pain: in the emergency department the pain is a 8 / 10. Historical: - Allergies: 19:13 No Known Allergies; aj1 - Home Meds: 19:31 amlodipine 10 mg tab 1 tab once daily [Active]; aspirin 81 mg Oral chew [Active]; aj1 atorvastatin 10 mg Oral tab 1 tab once daily [Active]; carvedilol 25 mg Oral tab 1 tab 2 times per day [Active]; clopidogrel 75 mg Oral tab 1 tab once daily [Active]; isosorbide dinitrate 30 mg Oral tab 1 tab 2 times per day [Active]; Lantus 100 unit/mL Sub-Q soln [Active]; magnesium oxide 400 mg Oral tab twice a day [Active]; tamsulosin 0.4 mg Oral cp24 1 cap once daily [Active]; - PMHx: 19:31 Diabetes - IDDM; DIALYSIS MWF; ESRD; Hypertension; aj1 - PSHx: 19:31 CABG; RUE GRAFT; aj1 - Immunization history:: Adult Immunizations up to date. - Social history:: Smoking status: Patient denies any tobacco usage or history of. ROS: 18:35 Constitutional: Negative for body aches, chills, fever, poor PO intake. cp 18:35 Eyes: Negative for injury, pain, redness, and discharge. cp 18:35 ENT: Negative for drainage from ear(s), ear pain, sore throat, difficulty swallowing, difficulty handling secretions. 18:35 Cardiovascular: Positive for chest pain, Negative for edema, palpitations. 18:35 Respiratory: Positive for shortness of breath, Negative for cough, wheezing. 18:35 Abdomen/GI: Negative for abdominal pain, vomiting, diarrhea, constipation. 18:35 Back: Negative for pain at rest, pain with movement. 18:35 Skin: Negative for rash. 18:35 Neuro: Negative for altered mental status, headache, weakness. 18:35 All other systems are negative. Exam: 18:30 ECG was reviewed by the Attending Physician. cp 18:40 Constitutional: The patient appears in no acute distress, alert, awake, cp non-diaphoretic, non-toxic, well developed, well nourished, uncomfortable. 18:40 Head/Face: Normocephalic, atraumatic. cp 18:40 Eyes: Periorbital structures: appear normal, Conjunctiva: normal, no exudate, no injection, Sclera: no appreciated abnormality, Lids and lashes: appear normal, bilaterally. 18:40 ENT: External ear(s): are unremarkable, Nose: is normal, Mouth: Lips: moist, Oral mucosa: pink and intact, moist, Posterior pharynx: is normal, airway is patent, no erythema, no exudate. 18:40 Neck: ROM/movement: is normal, is supple, without pain, no range of motions limitations, no nuchal rigidity. 18:40 Chest/axilla: Inspection: normal, Palpation: is normal, no crepitus, no tenderness. 18:40 Cardiovascular: Rate: normal, Rhythm: regular, Edema: is not appreciated, JVD: is not appreciated. 18:40 Respiratory: the patient does not display signs of respiratory distress, Respirations: normal, no use of accessory muscles, no retractions, labored breathing, is not present, Breath sounds: are clear throughout, no decreased breath sounds. 18:40 Abdomen/GI: Inspection: abdomen appears normal, Bowel sounds: active, all quadrants, Palpation: abdomen is soft and non-tender, in all quadrants. 18:40 Back: pain, is absent, ROM is normal. 18:40 Skin: no rash present. 18:40 Neuro: Orientation: to person, place \T\ time. Mentation: is normal, Cerebellar function: is grossly normal, Motor: moves all fours, strength is normal, Sensation: is normal. Vital Signs: 18:22 BP 151 / 59; Pulse 84; Resp 21; Pulse Ox 100% on R/A; dm5 19:23 BP 164 / 49; Pulse 78; Resp 16; Temp 98.8; Pulse Ox 100% on R/A; Pain 0/10; aj1 20:30 BP 150 / 47; Pulse 77; Resp 16; Pulse Ox 100% on R/A; Pain 0/10; aa1 21:30 BP 135 / 46; Pulse 70; Resp 16; Temp 98.5; Pulse Ox 100% on R/A; Pain 0/10; aa1 22:30 BP 132 / 49; Pulse 69; Resp 16; Pulse Ox 99% on R/A; aa1 MDM: 18:23 Patient medically screened. cp 20:10 Data reviewed: vital signs, nurses notes, lab test result(s), EKG, radiologic studies, cp plain films, and as a result, I will admit patient. 20:10 Test interpretation: by ED physician or midlevel provider: ECG. 12/23 18:26 Order name: Basic Metabolic Panel; Complete Time: 19:43 12/23 19:43 Interpretation: Normal except: NA 135; BUN 39; CA 7.9; GLUC 427; GFR 10. 12/23 18:26 Order name: CBC with Diff; Complete Time: 19:23 12/23 19:23 Interpretation: Normal except: RBC 2.85; HGB 9.2; HCT 28.3; PLT 138; RDW 17.6; ANGÉLICA% cp 81.8; LYM% 8.2; LYMA 0.4. 12/23 18:26 Order name: LFT's; Complete Time: 19:43 12/23 18:26 Order name: Magnesium; Complete Time: 19:43 12/23 18:26 Order name: NT PRO-BNP; Complete Time: 19:43 12/23 19:44 Interpretation: Abnormal: NT PRO-BNP 47894. 12/23 18:26 Order name: PT-INR; Complete Time: 19:23 12/23 18:26 Order name: Troponin (emerg Dept Use Only); Complete Time: 19:43 12/23 20:49 Order name: Basic Metabolic Panel EDMS 12/23 20:49 Order name: Basic Metabolic Panel; Complete Time: 09:28 EDMS 12/23 20:49 Order name: CBC with Automated Diff EDMS 12/23 20:49 Order name: CBC with Automated Diff; Complete Time: 09:28 EDMS 12/23 20:49 Order name: Lipid Profile EDMS 12/23 20:49 Order name: Lipid Profile EDMS 12/23 20:54 Order name: Glucose, Ancillary Testing; Complete Time: 21:06 EDMS 12/23 21:07 Interpretation: Reviewed. cp 12/23 18:26 Order name: XRAY Chest (1 view); Complete Time: 18:59 cp 12/23 18:59 Interpretation: Report review. cp 12/23 18:26 Order name: EKG; Complete Time: 18:28 cp 12/23 20:48 Order name: CONS Physician Consult [facility] 12/23 20:48 Order name: Heart Healthy [facility] 12/23 20:49 Order name: Echo with Doppler EDMS 12/23 20:49 Order name: Echo with Doppler [facility] 12/23 20:49 Order name: EKG Electrocardiogram [facility] 12/24 06:12 Order name: Troponin I; Complete Time: 09:28 EDMS 12/24 06:17 Order name: Lipid Profile; Complete Time: 09:28 EDMS 12/24 10:11 Order name: NM [facility] 12/24 12:35 Order name: Glucose, Ancillary Testing [facility] 12/24 16:00 Order name: Glucose, Ancillary Testing [facility] 12/23 18:26 Order name: Cardiac monitoring; Complete Time: 18:30 cp 12/23 18:26 Order name: EKG - Nurse/Tech; Complete Time: 18:30 cp 12/23 18:26 Order name: IV Saline Lock; Complete Time: 18:42 cp 12/23 18:26 Order name: Labs collected and sent; Complete Time: 18:43 cp 12/23 18:26 Order name: O2 Per Protocol; Complete Time: 18:31 cp 12/23 18:26 Order name: O2 Sat Monitoring; Complete Time: 18:31 cp 12/23 20:49 Order name: EKG Electrocardiogram [facility] EC:30 Rate is 82 beats/min. Rhythm is regular. WA interval is normal. QRS interval is cp prolonged at 132 msec. QT interval is normal. T waves are Inverted in leads aVL, aVR, V2, V3. ST Segment is depressed in leads II, aVF, V2, V3, V4, V5. Interpreted by me. Reviewed by me. Administered Medications: 19:03 Drug: morphine 2 mg Route: IVP; Site: left antecubital; aj1 20:00 Follow up: Response: No adverse reaction; Pain is decreased aa1 19:03 Drug: Zofran (Ondansetron) 4 mg Route: IVP; Site: left antecubital; aj1 20:00 Follow up: Response: No adverse reaction aa1 19:54 Drug: Insulin Regular Human 10 units {Co-Signature: ([facility]} Route: IVP; aj1 Site: right antecubital; 21:00 Follow up: Response: No adverse reaction; Blood sugar is lowered aa1 20:27 Drug: Aspirin Chewable Tablet 324 mg Route: PO; aa1 21:20 Follow up: Response: No adverse reaction aa1 Disposition: 12/24 07:08 Co-signature as Attending Physician, Tong Cummings MD I agree with the assessment and kdr plan of care. Disposition: 12/24/19 20:09 Hospitalization ordered by Elaina Peña for Observation. Preliminary diagnosis is Chest pain, unspecified. - Bed requested for Telemetry/MedSurg (observation). - Status is Observation. mg2 - Condition is Stable. - Problem is new. - Symptoms have improved. Signatures: Dispatcher [employer] EDMS Gina López RN RN aj1 Kayla Soriano RN RN dm5 Cady Sorensen RN RN dw Preeti Ordaz RN RN aa1 Tong Cummings MD MD kdr Roszak, Josh, PA PA jr8 Page, Corey, PA PA cp Gardose, Michele, RN RN mg2 [facility] Corrections: (The following items were deleted from the chart) 12/23 18:32 18:32 This 74 yrs old Male presents to ER via Ambulatory with complaints of cp Chest Pain, Shortness Of Breath. cp 22:08 20:09 Hospitalization Ordered by Elaina Peña MD for Observation. Preliminary dw diagnosis is Chest pain, unspecified. Bed requested for Telemetry/MedSurg (observation). Status is Observation. Condition is Stable. Problem is new. Symptoms have improved. cp 12/24 15:42 12/23 22:08 12/24/2019 20:09 Hospitalization Ordered by Elaina Peña MD for dm5 Observation. Preliminary diagnosis is Chest pain, unspecified. Bed requested for [facility] ER HOLD. Status is Observation. Condition is Stable. Problem is new. Symptoms have improved. dw 12/24 16:34 15:42 12/24/2019 20:09 Hospitalization Ordered by Elaina Peña MD for Observation. mg2 Preliminary diagnosis is Chest pain, unspecified. Bed requested for Telemetry/MedSurg (observation). Status is Observation. Condition is Stable. Problem is new. Symptoms have improved. dm5
--- NOTE | 2019-12-24 20:10 | ER ---
Nurse's Notes [facility] Name: Geronimo Hurtado Age: 74 yrs Sex: Male : 1945 Arrival Date: 12/24/2019 Time: 18:08 Bed 15 Private MD: Diagnosis: Chest pain, unspecified Presentation: 12/23 18:22 Chief complaint: Patient states: chest pain that started after dialysis around 1300 dm5 today, pt took 2 nitro and hasn't had any relief. pt had similar pain on Sunday that was relieved by nitro. pt has cardiac history. ekg done. Coronavirus screen: The patient has NOT traveled to a country currently being monitored by the [facility] within the last 14 days. Proceed with normal triage procedures. The patient has NOT had contact with any known and/or suspected case of coronavirus. Proceed with normal triage procedures. Ebola Screen: Patient negative for fever greater than or equal to 101.5 degrees Fahrenheit, and additional compatible Ebola Virus Disease symptoms Patient denies exposure to infectious person. Patient denies travel to an Ebola-affected area in the 21 days before illness onset. No symptoms or risks identified at this time. Initial Sepsis Screen: Does the patient meet any 2 criteria? No. Patient's initial sepsis screen is negative. Does the patient have a suspected source of infection? No. Patient's initial sepsis screen is negative. Risk Assessment: Do you want to hurt yourself or someone else? Patient reports no desire to harm self or others. 18:22 Acuity: LYNETTE 2 dm5 18:22 Method Of Arrival: Ambulatory dm5 Historical: - Allergies: 19:13 No Known Allergies; aj1 - Home Meds: 19:31 amlodipine 10 mg tab 1 tab once daily [Active]; aspirin 81 mg Oral chew [Active]; aj1 atorvastatin 10 mg Oral tab 1 tab once daily [Active]; carvedilol 25 mg Oral tab 1 tab 2 times per day [Active]; clopidogrel 75 mg Oral tab 1 tab once daily [Active]; isosorbide dinitrate 30 mg Oral tab 1 tab 2 times per day [Active]; Lantus 100 unit/mL Sub-Q soln [Active]; magnesium oxide 400 mg Oral tab twice a day [Active]; tamsulosin 0.4 mg Oral cp24 1 cap once daily [Active]; - PMHx: 19:31 Diabetes - IDDM; DIALYSIS MWF; ESRD; Hypertension; aj1 - PSHx: 19:31 CABG; RUE GRAFT; aj1 - Immunization history:: Adult Immunizations up to date. - Social history:: Smoking status: Patient denies any tobacco usage or history of. Screenin:13 Abuse screen: Denies threats or abuse. Denies injuries from another. Nutritional aj1 screening: No deficits noted. Tuberculosis screening: No symptoms or risk factors identified. 19:23 Fall Risk IV access (20 points). aj1 Assessment: 18:45 General: Appears in no apparent distress. uncomfortable, Behavior is calm, cooperative, aj1 appropriate for age. Pain: Complains of pain in chest Pain does not radiate. Pain currently is 8 out of 10 on a pain scale. Quality of pain is described as aching, Pain began suddenly. Neuro: Level of Consciousness is awake, alert, obeys commands, Oriented to person, place, time, situation. Cardiovascular: Reports chest pain, shortness of breath, Heart tones S1 S2 present Patient's skin is warm and dry. Rhythm is sinus rhythm. Respiratory: Reports shortness of breath Airway is patent Respiratory effort is even, unlabored, Respiratory pattern is regular, symmetrical. GI: No signs and/or symptoms were reported involving the gastrointestinal system. : No signs and/or symptoms were reported regarding the genitourinary system. EENT: No signs and/or symptoms were reported regarding the EENT system. Derm: No signs and/or symptoms reported regarding the dermatologic system. Skin is pink, warm \T\ dry. normal. Musculoskeletal: No signs and/or symptoms reported regarding the musculoskeletal system. Circulation, motion, and sensation intact. 19:23 Reassessment: Patient appears in no apparent distress at this time. Patient and/or aj1 family updated on plan of care and expected duration. Pain level reassessed. Patient is alert, oriented x 3, equal unlabored respirations, skin warm/dry/pink. Awaiting test results. 22:30 Reassessment: Patient appears in no apparent distress at this time. Patient and/or aa1 family updated on plan of care and expected duration. Pain level reassessed. Patient is alert, oriented x 3, equal unlabored respirations, skin warm/dry/pink. Pt placed in ER hold at this time. Vital Signs: 18:22 BP 151 / 59; Pulse 84; Resp 21; Pulse Ox 100% on R/A; dm5 19:23 BP 164 / 49; Pulse 78; Resp 16; Temp 98.8; Pulse Ox 100% on R/A; Pain 0/10; aj1 20:30 BP 150 / 47; Pulse 77; Resp 16; Pulse Ox 100% on R/A; Pain 0/10; aa1 21:30 BP 135 / 46; Pulse 70; Resp 16; Temp 98.5; Pulse Ox 100% on R/A; Pain 0/10; aa1 22:30 BP 132 / 49; Pulse 69; Resp 16; Pulse Ox 99% on R/A; aa1 ED Course: 18:08 Patient arrived in ED. ag5 18:11 Dandre Freedman PA is PHCP. cp 18:11 Tong Cummings MD is Attending Physician. cp 18:23 Triage completed. dm5 18:29 Gina López, YENNI is Primary Nurse. aj1 18:38 XRAY Chest (1 view) In Process Unspecified. EDMS 18:42 Initial lab(s) drawn, by me, sent to lab. Inserted saline lock: 22 gauge in left lt1 antecubital area, using aseptic technique. 18:45 No provider procedures requiring assistance completed. Patient maintains SpO2 aj1 saturation greater than 95% on room air. 18:45 Patient has correct armband on for positive identification. monitor technician on. Pulse aj1 ox on. NIBP on. 20:09 Elaina Peña MD is Hospitalizing Provider. cp 22:30 Patient admitted, IV remains in place. aa1 12/24 16:33 Arm band placed on. mg2 Administered Medications: 12/23 19:03 Drug: morphine 2 mg Route: IVP; Site: left antecubital; aj1 20:00 Follow up: Response: No adverse reaction; Pain is decreased aa1 19:03 Drug: Zofran (Ondansetron) 4 mg Route: IVP; Site: left antecubital; aj1 20:00 Follow up: Response: No adverse reaction aa1 19:54 Drug: Insulin Regular Human 10 units {Co-Signature: kelley (Dari Haider).} Route: IVP; aj1 Site: right antecubital; 21:00 Follow up: Response: No adverse reaction; Blood sugar is lowered aa1 20:27 Drug: Aspirin Chewable Tablet 324 mg Route: PO; aa1 21:20 Follow up: Response: No adverse reaction aa1 Outcome: 20:09 Decision to Hospitalize by Provider. cp 22:30 Admitted to ER Hold. Please see [facility] for further documentation. aa1 22:30 Condition: good 22:30 Instructed on the need for admit, Demonstrated understanding of instructions. 12/24 16:32 Admitted to Med/surg accompanied by tech, via wheelchair, room 242, with chart, Report mg2 called to YENNI Muniz Condition: stable Instructed on the need for admit, Demonstrated understanding of instructions. 16:34 Patient left the ED. mg2 Signatures: Dispatcher [employer] Gina Wang RN RN aj1 Kayla Soriano RN RN dm5 Preeti Ordaz RN RN aa1 Dandre Freedman PA PA cp Gardose, Michele, RN RN mg2 Shane Reddy Leah [address]
[2019-12-24] MEDS ORDERED: ASPIRIN 81 MG CHEWABLE TABLET ONE (20:28)
[2019-12-24] MEDS ORDERED: MORPHINE 4 MG/ML SYR IV PRN (20:42)
[2019-12-24] MEDS ORDERED: ACETAMINOPHEN 500 MG TAB PO PRN (20:42)
[2019-12-24] MEDS ORDERED: ALPRAZOLAM 0.25 MG TABLET PO PRN (20:42)
[2019-12-24] MEDS: METOPROLOL TAR 50 MG TAB PO SCH (21:00)
[2019-12-25] MEDS ORDERED: METOPROLOL TAR 25 MG TAB ONE ×2 (01:41→09:50)
[2019-12-25 01:57] VITALS: BMI 25.7
--- NOTE | 2019-12-25 03:08 | P.HP ---
Certification for Inpatient Patient admitted to: Observation With expected LOS: <2 Midnights Patient will require the following post-hospital care: None Practitioner: I am a practitioner with admitting privileges, knowledge of patient current condition, hospital course, and medical plan of care. Services: Services provided to patient in accordance with Admission requirements found in Title 42 Section 412.3 of the Code of Federal Regulations Patient History Date of Service: 12/24/19 Reason for admission: Chest pain rule out acute coronary syndrome History of Present Illness: Patient is a 74-year-old gentleman who came to hospital with the discomfort. Pain was mainly in the sternal region. Pain started shortly after hemodialysis at 1:00 p.m. Patient took a couple of nitros and did not have any relief so patient came into the emergency room. Patient states that he had similar chest pain after hemodialysis on Sunday. In the ER, morphine relieved the chest discomfort. Patient has a history of bypass with 2 stents. The last stent was placed after the bypass surgery. Patient has not had any cardiac workup done in a couple of years. Patient will be admitted to the hospital for further evaluation. Allergies No Known Allergies Allergy (Verified 12/15/19 21:02) Home Medications: Amlodipine Besylate 1 tab PO DAILY 12/16/19 Aspirin 1 tab PO BEDTIME 12/16/19 Atorvastatin Calcium [Lipitor] 40 mg PO DAILY 12/16/19 Isosorbide Mononitrate [Isosorbide Mononitrate ER] 1 tab PO DAILY 12/16/19 Sevelamer Carbonate 1 tab PO TIDWM 12/16/19 Tamsulosin HCl 1 cap PO BEDTIME 12/16/19 Ticagrelor [Brilinta*] 1 tab PO BID 12/16/19 carvediloL [Carvedilol] 1 tab PO BID 12/16/19 - Past Medical/Surgical History Has patient received pneumonia vaccine in the past: Yes Diabetic: Yes -: HTN -: Hyperlipidemia -: ESRD -: CAD -: Hypothyroidism -: Hyperlipidemia -: Spinal stenosis of L spine -: DDD of the C spine. -: Anemia of chronic disease -: GERD -: HEART STENTS x1 -: AV graft R FA -: Benjamin cataracts sx Psychosocial/ Personal History: - Family History Mother Medical History: Heart disease, Hypertension, Diabetes Father Medical History: Heart disease - Social History Smoking Status: Never smoker Alcohol use: No CD- Drugs: No Caffeine use: Yes Place of Residence: Home Review of Systems 10-point ROS is otherwise unremarkable Physical Examination - Vital Signs Temperature: 99 F Blood Pressure: 133/46 Pulse: 59 Respirations: 16 Pulse Ox (%): 96 - Physical Exam General: Alert, In no apparent distress, Oriented x3 HEENT: Atraumatic, PERRLA, Mucous membr. moist/pink, EOMI, Sclerae nonicteric Neck: Supple, 2+ carotid pulse no bruit, No LAD, Without JVD or thyroid abnormality Respiratory: Clear to auscultation bilaterally, Normal air movement Cardiovascular: Regular rate/rhythm, Normal S1 S2, Systolic murmur Gastrointestinal: Normal bowel sounds, Soft and benign, Non-distended, No tenderness Musculoskeletal: No clubbing, No swelling, No tenderness Integumentary: No rashes Neurological: Normal gait, Normal speech, Normal strength at 5/5 x4 extr, Normal tone, Sensation intact, Cranial nerves 3-12 intact, Normal affect Lymphatics: No axilla or inguinal lymphadenopathy - Studies Laboratory Data (last 24 hrs) 12/24/19 18:40: PT 13.3 H, INR 1.13 12/24/19 18:40: WBC 5.3 D, Hgb 9.2 L, Hct 28.3 L, Plt Count 138 L 12/24/19 18:40: Sodium 135 L, Potassium 4.1, BUN 39 H, Creatinine 5.36 H* D, Glucose 427 H*, Magnesium 2.2, Total Bilirubin 0.6, AST 15, ALT 24, Alkaline Phosphatase 178 H Assessment & Plan - Problems (Diagnosis) (1) Chest pain, rule out acute myocardial infarction Current Visit: Yes Status: Acute (2) History of coronary artery bypass graft Current Visit: Yes Status: Acute (3) History of heart artery stent Current Visit: Yes Status: Acute (4) CAD (coronary artery disease) Current Visit: No Status: Acute (5) CHF (congestive heart failure) Onset Date: 11/16/15 Current Visit: No Status: Acute (6) ESRD (end stage renal disease) Onset Date: 10/01/14 Current Visit: No Status: Chronic (7) HTN (hypertension) Current Visit: No Status: Chronic Qualifiers: Hypertension type: essential hypertension Qualified Code(s): I10 - Essential (primary) hypertension (8) Hyperlipidemia Current Visit: No Status: Chronic (9) Hypothyroid Current Visit: No Status: Chronic (10) Type II diabetes mellitus Current Visit: No Status: Chronic - Plan 1. Serial troponins and EKG 2. Cardiology consultation 3. Echocardiogram and stress test if cardiology is agreeable 4. Anti-platelet therapy, anti coagulation, beta-adela, statin, and O2 as needed 5. IV morphine for pain 6. Nitro p.r.n. 7. Hemodialysis per Nephrology 8. GI and DVT prophylaxis Discharge Plan: Home Plan to discharge in: 24 Hours - Advance Directives Does patient have a Living Will: No Does patient have a Durable POA for Healthcare: No - Code Status/Comfort Care Code Status Assessed: Yes Code Status: Full Code Critical Care: No Time Spent Managing PTS Care (In Minutes): 40
[2019-12-25 05:46] LABS: Absolute Lymphocytes (CBC) 0.5 K/uL (0.7-4.9); Basophils % 1.3 % (0-1.3); Hematocrit 25.8 % (39.6-49.0); Lymphocytes % 10.4 % (15.3-44.8); MPV 9.8 fL (7.6-11.3); RBC Red Blood Cell Count 2.61 M/uL (4.33-5.43)
[2019-12-25 06:11] LABS: Potassium 4.7 mmol/L (3.5-5.1)
[2019-12-25] MEDS ORDERED: REGADENOSON 0.4 MG/5 ML SYR IV ONE (07:59)
[2019-12-25] MEDS: SEVELAMER CARBONATE 800 MG TABLET PO SCH ×3 (08:00→17:21)
--- NOTE | 2019-12-25 08:52 | EKG ---
Test Date: 2019-12-24 Test Time: 18:22:21 Residential Door Installer: ZACH MEASUREMENT RESULTS: Intervals: Rate: 82 NJ: 162 QRSD: 132 QT: 430 QTc: 502 Tate: P: 77 NJ: 162 QRS: 6 T: 93 INTERPRETIVE STATEMENTS: Normal sinus rhythm Right bundle branch block T wave abnormality, consider lateral ischemia Abnormal ECG Compared to ECG 12/15/2019 21:53:47 T-wave abnormality now present Possible ischemia now present Electronically Signed On 12-25-19 08:50:36 CDT by Roger Love
[2019-12-25] MEDS: ISOSORBIDE MONO SR 60 MG TAB PO SCH (09:00)
[2019-12-25] MEDS: ASPIRIN EC 81 MG TAB PO SCH (09:00)
[2019-12-25] MEDS: METOPROLOL TAR 50 MG TAB PO SCH ×2 (09:00→20:46)
[2019-12-25] MEDS ORDERED: ATORVASTATIN 40 MG TAB PO SCH ×2 (09:00→21:00)
[2019-12-25] MEDS: TICAGRELOR 90 MG TABLET PO SCH ×2 (09:00→20:46)
[2019-12-25] MEDS ORDERED: ENOXAPARIN 30 MG/0.3 ML SQ SCH (09:00)
[2019-12-25] MEDS ORDERED: ASPIRIN EC 81 MG TAB PO ONE (09:50)
[2019-12-25] MEDS ORDERED: TICAGRELOR 90 MG TABLET PO ONE (09:50)
[2019-12-25] MEDS ORDERED: ATORVASTATIN 20 MG TAB ONE (09:50)
[2019-12-25] MEDS ORDERED: ENOXAPARIN 30 MG/0.3 ML SQ ONE (09:51)
--- NOTE | 2019-12-25 09:57 | RAD REPORT ---
EXAM DESCRIPTION: NM - Rest Stress Cardiac Imaging - 12/25/2019 9:37 am CLINICAL HISTORY: Chest pain. COMPARISON: 2015 TECHNIQUE: The patient was administered approximately 10mCi of Tc 99m Sestamibi prior to resting SPE CT imaging of the heart. The patient was then administered approximately 30 mCi of Tc 99m Sestamibi f ollowing exercise or pharmacologic stress. Multiplanar SPECT images were reviewed. FINDINGS: Moderate area of diminished radiotracer uptake involves the anterior left ventricular yessica cardium on stress images. The rest images demonstrate mild reaccumulation of radiotracer within the a nterior wall. The left ventricular ejection fraction equals 41 % IMPRESSION: Moderate mostly fixed perfusion defect involving the anterior left ventricle myocardium having the appearance of an infarct with mild pippa-infarct ischemia
--- NOTE | 2019-12-25 12:14 | TREADPHA ---
DX: CHEST PAIN Date of Study: 12/25/2019 Ht: 5 3 Wt: 145 lb 0 oz Consulting Physician: RAAD MEDICATIONS: XANAX, ASPIRIN, LIPITOR, LOSPRESSOR, RENVELA, BRILIMTO, AMLODIPNE, TAMSALOSIN, SEVELMIR HISTORY: 74 YEAR OLD MALE WITH HISTORY OF HYPERTENSION, MYOCARDIAL INFARCTION, BYPASS, END STAGE RENAL FAILURE. INSULIN DEPENDENT DIABETES MELLITUS. ADMITTED FOR CHEST PAIN. DENIES CHEST PAIN AT TIME OF TEST. PHYSICIAL EXAMINATION: RESTING B.P.: 137/52 RESTING H.R.: 67 RESTING EKG: SINUS RHYTHM, RIGHT BUNDLE BRANCH BLOCK. PROTOCOL: LEXISCAN EXERCISE TIME: 3:30 B.P. AT PEAK STRESS: 118/48 IMPRESSION: LEXISCAN STRESS TEST PERFORMED. CARDIOLITE INJECTED PER PROTOCOL. NO SUPRAVENTRICULAR TACHYCARDIA, VENTRICULAR TACHYCARDIA OR ARRTHMIAS NOTED. PATIENT REPORTED CHEST PAIN 9 OUT OF 10 SCALE DURING TESTING. RESPIRATORY EVEN AND NON LABORED. DENIES CHEST PAIN AT THIS TIME. PATIENT TOLERATED WELL. DENIES CHEST PAIN AT THIS TIME. SEE NUCLEAR MEDICINE REPORT.
--- NOTE | 2019-12-25 13:19 | P.PN ---
Subjective Date of Service: 12/25/19 Chief Complaint: Chest pain rule out acute coronary syndrome Subjective: No new changes, No C/O voiced, Tolerating diet Physical Examination - Vital Signs Temperature: 98.5 F Blood Pressure: 141/49 Pulse: 76 Respirations: 16 Pulse Ox (%): 100 - Physical Exam General: Alert, In no apparent distress, Oriented x3 HEENT: Atraumatic, Normocephalic Neck: 2+ carotid pulse no bruit, JVD not distended Respiratory: Clear to auscultation bilaterally, Normal air movement Cardiovascular: Normal pulses, Regular rate/rhythm, Normal S1 S2 Gastrointestinal: Normal bowel sounds, Soft and benign Neurological: Normal speech, Normal strength at 5/5 x4 extr - Studies Laboratory Data (last 24 hrs) 12/24/19 18:40: PT 13.3 H, INR 1.13 12/24/19 18:40: WBC 5.3 D, Hgb 9.2 L, Hct 28.3 L, Plt Count 138 L 12/24/19 18:40: Sodium 135 L, Potassium 4.1, BUN 39 H, Creatinine 5.36 H* D, Glucose 427 H*, Magnesium 2.2, Total Bilirubin 0.6, AST 15, ALT 24, Alkaline Phosphatase 178 H Assessment & Plan Physician Review: Patient Assessed, Agree with Above Assessment and Plan Physician Review Additional Text: # chest pain-positive stress test noted on nuclear medicine -will consult Cardiology follow recommendation Continue nitro, start heparin # ESRD-would consult Nephrology for continued dialysis # hypertension-continue home medication # Anemia -trending down to 8.4 , follow iron profile -start Epogen per renal # DM -c/w ISSS
[2019-12-25] MEDS ORDERED: GLUCAGON 1 MG/VIAL IM PRN (14:40)
[2019-12-25] MEDS ORDERED: D50W 25 GM/50 ML SYRINGE/VIAL IV PRN (14:40)
[2019-12-25] MEDS: INSULIN LISPRO 100 UNIT/1 ML SQ SCH ×2 (16:30→20:47)
[2019-12-25] MEDS ORDERED: INSULIN -REGULAR HUMAN 50 UNIT/0.5 ML ML SQ SCH (16:30)
[2019-12-25] MEDS ORDERED: INSULIN LISPRO 100 UNIT/1 ML ONE (16:32)
[2019-12-25 17:41] VITALS: O2SAT 99
--- NOTE | 2019-12-26 05:31 | CON ---
Date of Consultation: 12/25/[address] Peña's service on 12/24/2019. I saw the patient on 12/25/2019. Reason For Consultation: Chest pain. History Of Present Illness: Mr. Hurtado is a 74-year-old Latin-[place] male, who has a history of e nd-stage renal disease, on hemodialysis. He has had a history of hypertension, diabetes, has had a h istory of coronary artery disease, status post coronary artery bypass surgery. He came in with chest pain that is substernal, nonradiating, nonexertional. No nausea, vomiting, diaphoresis, PND, orthop pipo, pedal edema, palpitations, or syncope. Mr. Hurtado is a do not resuscitate. Past Medical History: As stated above. Allergies: NONE. Review of Systems: Negative. Social History: Negative. Family History: Negative. Medications: Include carvedilol, Brilinta, Norvasc, aspirin, Lipitor, and Imdur. Physical Examination: Vital Signs: Stable. Afebrile. HEENT: Negative. Neck: Supple without any bruit, lymphadenopathy, JVD, or thyromegaly. Chest: Clear to auscultation and percussion. Cardiac: Revealed a regular rhythm and rate with an aortic sclerosis murmur. No gallops, no rubs. Abdomen: Benign. Extremities: Revealed no clubbing, cyanosis, or edema. Skin: Dry and intact. Neurologic: He was nonfocal. Diagnostic Data: Creatinine was 6.6. The hemoglobin was 8.2, glucose was 427. BNP was 61,562. Tro ponin was 0.44. Impression And Plan: 1.Patient is a do not resuscitate. His chest pain sounds anginal. He has had a history of coronary artery bypass grafting in the past. Did not really want to be very aggressive as far as his treatme nt is concerned. An echocardiogram and Lexiscan are pending. We will see what those shows prior to making final decisions. We will certainly have norms to work with his medications where we can incre ase his Coreg or Imdur, unless the stress test showed a large defect. 2.Elevated troponin and BNP consistent with coronary artery disease as well as renal failure. 3.Anemia of chronic disease. 4.Diabetes, poorly controlled. 5.Hypertension, well controlled. 6.Coronary artery disease, status post coronary artery bypass grafting. 7.End-stage renal disease, on hemodialysis. Continue present regimen, see what the echo and Lexisca n show, we will continue to follow. HARLEY/AYE Voice ID: [id number] Report ID: [id number]
[2019-12-26] MEDS: INSULIN LISPRO 100 UNIT/1 ML SQ SCH ×2 (08:47→12:42)
[2019-12-26] MEDS: TICAGRELOR 90 MG TABLET PO SCH (08:48)
[2019-12-26] MEDS: ASPIRIN EC 81 MG TAB PO SCH (08:48)
[2019-12-26] MEDS: SEVELAMER CARBONATE 800 MG TABLET PO SCH ×2 (08:49→12:42)
[2019-12-26] MEDS: ISOSORBIDE MONO SR 60 MG TAB PO SCH (08:49)
[2019-12-26 08:54] VITALS: BP 167/69
[2019-12-26] MEDS ORDERED: METOPROLOL TAR 50 MG TAB PO SCH (09:00)
[2019-12-26] MEDS ORDERED: HEPARIN 5000 UNIT/ML 1 ML VIAL SQ SCH (09:00)
[2019-12-26 09:44] VITALS: TEMP 97.7
--- NOTE | 2019-12-26 10:56 | P.DS ---
Admission Date: 12/26/19 Discharge Date: 12/26/19 Disposition: ROUTINE DISCHARGE Discharge Condition: GOOD Reason for Admission: Chest pain rule out acute coronary syndrome Vital Signs/Physical Exam: Temp Pulse Resp BP Pulse Ox 97.7 F 70 18 167/69 H 99 12/26/19 08:00 12/26/19 08:50 12/26/19 08:00 12/26/19 08:50 12/26/19 08:00 General: Alert, In no apparent distress HEENT: Atraumatic, PERRLA, EOMI Neck: Supple, JVD not distended Respiratory: Clear to auscultation bilaterally, Normal air movement Cardiovascular: Regular rate/rhythm, Normal S1 S2 Gastrointestinal: Normal bowel sounds, No tenderness Musculoskeletal: No tenderness Integumentary: No rashes Neurological: Normal speech, Normal tone, Normal affect Lymphatics: No axilla or inguinal lymphadenopathy Laboratory Data at Discharge: WBC 4.9 K/uL (4.3-10.9) 12/25/19 05:25 Hgb 8.4 g/dL (13.6-17.9) L 12/25/19 05:25 Hct 25.8 % (39.6-49.0) L 12/25/19 05:25 Plt Count 133 K/uL (152-406) L 12/25/19 05:25 PT 13.3 SECONDS (9.5-12.5) H 12/24/19 18:40 INR 1.13 12/24/19 18:40 Sodium 138 mmol/L (136-145) 12/25/19 05:25 Potassium 4.7 mmol/L (3.5-5.1) 12/25/19 05:25 BUN 46 mg/dL (7-18) H 12/25/19 05:25 Creatinine 6.63 mg/dL (0.55-1.3) H* D 12/25/19 05:25 Glucose 242 mg/dL (74-106) H 12/25/19 05:25 Magnesium 2.2 mg/dL (1.8-2.4) 12/24/19 18:40 Total Bilirubin 0.6 mg/dL (0.2-1.0) 12/24/19 18:40 AST 15 U/L (15-37) 12/24/19 18:40 ALT 24 U/L (12-78) 12/24/19 18:40 Alkaline Phosphatase 178 U/L (45-117) H 12/24/19 18:40 Troponin I 0.44 ng/mL (0.0-0.045) H 12/25/19 05:25 Triglycerides Cancelled 12/25/19 06:00 Cholesterol Cancelled 12/25/19 06:00 HDL Cholesterol Cancelled 12/25/19 06:00 Cholesterol/HDL Ratio Cancelled 12/25/19 06:00 Home Medications: Amlodipine Besylate 1 tab PO DAILY 12/16/19 Aspirin 1 tab PO BEDTIME 12/16/19 Atorvastatin Calcium [Lipitor] 40 mg PO DAILY 12/16/19 Isosorbide Mononitrate [Isosorbide Mononitrate ER] 1 tab PO DAILY 12/16/19 Sevelamer Carbonate 1 tab PO TIDWM 12/16/19 Tamsulosin HCl 1 cap PO BEDTIME 12/16/19 Ticagrelor [Brilinta*] 1 tab PO BID 12/16/19 carvediloL [Carvedilol] 1 tab PO BID 12/16/19 Hydralazine [Apresoline*] 50 mg PO TID 12/25/19 Patient Discharge Instructions: OK TO DC IV AND DC HOME. FOLLOW-UP WITH PRIMARY CARE PROVIDER IN 1-2 WEEKS. FOLLOW-UP WITH CARDIOLOGY IN 1-2 WEEKS. FOLLOW WITH NEPHROLOGY FOR HEMODIALYSIS. RETURN TO THE ER IF symptoms worsen. CALL or TEXT DR. WEBSTER AT [phone] IF ANY QUESTIONS REGARDING HOSPITAL STAY. PLEASE CALL THE FLOOR AT [phone] IF ANY MEDICATION OR NURSING QUESTIONS. Diet: Renal Activity: Fall precautions
--- NOTE | 2019-12-26 10:57 | P.DS ---
Admission Date: 12/26/19 Discharge Date: 12/29/19 Disposition: ROUTINE DISCHARGE Discharge Condition: GOOD Reason for Admission: Chest pain rule out acute coronary syndrome Consultations: Barber Shop Manager Brief History of Present Illness: History of Present Illness: Patient is a 74-year-old gentleman who came to hospital with the discomfort. Pain was mainly in the sternal region. Pain started shortly after hemodialysis at 1:00 p.m. Patient took a couple of nitros and did not have any relief so patient came into the emergency room. Patient states that he had similar chest pain after hemodialysis on Sunday. In the ER, morphine relieved the chest discomfort. Patient has a history of bypass with 2 stents. The last stent was placed after the bypass surgery. Patient has not had any cardiac workup done in a couple of years. Patient will be admitted to the hospital for further evaluation. Hospital Course: Patient was admitted for chest pain evaluation. He was evaluated by wholesale account manager and given typical chest pain, he underwent echocardiogram and lexiscan which showed very minimal pippa-infarct ischemia which is expected given CABG surgery 4 years ago and uncontrolled DM. Medical treatment was recommended. Troponin and BNP elevation is probably related to ESRD. Patient is a DNR/ DNI and follows up with his primary wholesale account manager closely. His chest pain has resolved completely and remained stable for discharge. He will follow up with his pcp and wholesale account manager for further care. Vital Signs/Physical Exam: Temp Pulse Resp BP Pulse Ox 97.7 F 70 18 167/69 H 99 12/26/19 08:00 12/26/19 08:50 12/26/19 08:00 12/26/19 08:50 12/26/19 08:00 General: Alert, In no apparent distress HEENT: Atraumatic, PERRLA, EOMI Neck: Supple, JVD not distended Respiratory: Clear to auscultation bilaterally, Normal air movement Cardiovascular: Regular rate/rhythm, Normal S1 S2 Gastrointestinal: Normal bowel sounds, No tenderness Musculoskeletal: No tenderness Integumentary: No rashes Neurological: Normal speech, Normal tone, Normal affect Lymphatics: No axilla or inguinal lymphadenopathy Laboratory Data at Discharge: WBC 4.9 K/uL (4.3-10.9) 12/25/19 05:25 Hgb 8.4 g/dL (13.6-17.9) L 12/25/19 05:25 Hct 25.8 % (39.6-49.0) L 12/25/19 05:25 Plt Count 133 K/uL (152-406) L 12/25/19 05:25 PT 13.3 SECONDS (9.5-12.5) H 12/24/19 18:40 INR 1.13 12/24/19 18:40 Sodium 138 mmol/L (136-145) 12/25/19 05:25 Potassium 4.7 mmol/L (3.5-5.1) 12/25/19 05:25 BUN 46 mg/dL (7-18) H 12/25/19 05:25 Creatinine 6.63 mg/dL (0.55-1.3) H* D 12/25/19 05:25 Glucose 242 mg/dL (74-106) H 12/25/19 05:25 Magnesium 2.2 mg/dL (1.8-2.4) 12/24/19 18:40 Total Bilirubin 0.6 mg/dL (0.2-1.0) 12/24/19 18:40 AST 15 U/L (15-37) 12/24/19 18:40 ALT 24 U/L (12-78) 12/24/19 18:40 Alkaline Phosphatase 178 U/L (45-117) H 12/24/19 18:40 Troponin I 0.44 ng/mL (0.0-0.045) H 12/25/19 05:25 Triglycerides Cancelled 12/25/19 06:00 Cholesterol Cancelled 12/25/19 06:00 HDL Cholesterol Cancelled 12/25/19 06:00 Cholesterol/HDL Ratio Cancelled 12/25/19 06:00 Home Medications: Amlodipine Besylate 1 tab PO DAILY 12/16/19 Aspirin 1 tab PO BEDTIME 12/16/19 Atorvastatin Calcium [Lipitor] 40 mg PO DAILY 12/16/19 Isosorbide Mononitrate [Isosorbide Mononitrate ER] 1 tab PO DAILY 12/16/19 Sevelamer Carbonate 1 tab PO TIDWM 12/16/19 Tamsulosin HCl 1 cap PO BEDTIME 12/16/19 Ticagrelor [Brilinta*] 1 tab PO BID 12/16/19 carvediloL [Carvedilol] 1 tab PO BID 12/16/19 Hydralazine [Apresoline*] 50 mg PO TID 12/25/19 Patient Discharge Instructions: OK TO DC IV AND DC HOME. FOLLOW-UP WITH PRIMARY CARE PROVIDER IN 1-2 WEEKS. FOLLOW-UP WITH CARDIOLOGY IN 1-2 WEEKS. FOLLOW WITH NEPHROLOGY FOR HEMODIALYSIS. RETURN TO THE ER IF symptoms worsen. CALL or TEXT DR. WEBSTER AT [phone] IF ANY QUESTIONS REGARDING HOSPITAL STAY. PLEASE CALL THE FLOOR AT [phone] IF ANY MEDICATION OR NURSING QUESTIONS. Diet: Renal Activity: Fall precautions
--- NOTE | 2019-12-26 11:30 | P.CNS ---
Date of Consult: 12/26/19 Reason for Consult: ESRD, fluid management Chief Complaint: Chest pain rule out acute coronary syndrome History of Present Illness: A 74 Y/o man with PMHx of DM , HTN , ESRd on HD MWF from [facility] and CAD S/P CABG , and PCI in 2019 pt presented with chest pain pt taking Nitro for pain, on sunday after HD had chest pain , didint improve on Nitro pt presented to ER currently no nausea, vomiting, chest pain, palpitation, headache or blurry vision Allergies No Known Allergies Allergy (Verified 12/15/19 21:02) Home Medications: Amlodipine Besylate 1 tab PO DAILY 12/16/19 Aspirin 1 tab PO BEDTIME 12/16/19 Atorvastatin Calcium [Lipitor] 40 mg PO DAILY 12/16/19 Isosorbide Mononitrate [Isosorbide Mononitrate ER] 1 tab PO DAILY 12/16/19 Sevelamer Carbonate 1 tab PO TIDWM 12/16/19 Tamsulosin HCl 1 cap PO BEDTIME 12/16/19 Ticagrelor [Brilinta*] 1 tab PO BID 12/16/19 carvediloL [Carvedilol] 1 tab PO BID 12/16/19 Hydralazine [Apresoline*] 50 mg PO TID 12/25/19 - Past Medical/Surgical History Diabetic: Yes -: HTN -: Hyperlipidemia -: ESRD -: CAD -: Hypothyroidism -: Hyperlipidemia -: Spinal stenosis of L spine -: DDD of the C spine. -: Anemia of chronic disease -: GERD -: HEART STENTS x1 -: AV graft R FA -: Benjamin cataracts sx Psychosocial/ Personal History: - Family History Mother Medical History: Heart disease, Hypertension, Diabetes Father Medical History: Heart disease - Social History Smoking Status: Former smoker Alcohol use: No CD- Drugs: No Caffeine use: Yes Place of Residence: Home Physical Examination Temp Pulse Resp BP Pulse Ox 97.7 F 70 18 167/69 H 99 12/26/19 08:00 12/26/19 08:50 12/26/19 08:00 12/26/19 08:50 12/26/19 08:00 - Problems (1) Chest pain, rule out acute myocardial infarction Current Visit: Yes Status: Acute Conclusions/Impression: Physical exam general: AAOX3, NAD , Neck; Supple, No elevated JVD hear: RRR, normal S1,2 no murmur or rub Chest: CTAB, no rlaes or wheezes Abdomen: Soft , Nt Extremities No edema or ulcer Assessment and plan End-stage renal disease on HD MWF HD today renal dose meds HTN today elevated as he didnt take BB cont HD DM as per PCP chest pain cardiology on board no intervention at this time
--- NOTE | 2019-12-26 12:25 | PN ---
Mr. Hurtado was admitted on 12/25/2019 for chest pain. He is a do not resuscitate. Has end-stage re nal disease, on hemodialysis. Had anemia of 8.2 hemoglobin. His glucose was 427. His initial chest pain lasted about 10-20 minutes and had resolved after 1 nitroglycerin since admission. He has not had any further cardiac chest pain. Mr. Hurtado is a do not resuscitate and does not wish any invasi ve workup unless his symptoms worsen. He is a patient of Dr. Salas and he will see him in the near future. I did review the stress test and he has some very minimal pippa-infarct ischemia, expected c onsidering his bypass surgery only 4 years ago and his severe diabetes. We are probably dealing with small vessel disease distal to his graft. Nevertheless, he is pain-free. No arrhythmias. His dez l signs are stable. I prefer that we treat him medically. I suggest we double his metoprolol from 2 5 b.i.d. to 50 b.i.d. and continue his other regimen, and he will see Dr. Salas in the near future. He can go home today as far as I am concerned. HARLEY/AYE Voice ID: [id number] Report ID: [id number]
== END 2019-12-26 15:26 | disposition home or self-care (01) | DRG 313 ==
LOC: ER 18:06 → ERHOLD 21:01 → 2ND 12-25 16:18 → OBSVTOIN 12-26 07:12
PROVIDERS: ADMIT Hospitalist; ATTEND Hospitalist
PROC: 5A1D70Z Performance of Urinary Filtration, Intermittent, Less than 6 Hours Per Day (ICD-10-PCS; principal; 2019-12-26)
DX: R07.9 Chest pain, unspecified (principal); N18.6 End stage renal disease; I12.0 Hypertensive chronic kidney disease with stage 5 chronic kidney disease or end stage renal disease; E11.22 Type 2 diabetes mellitus with diabetic chronic kidney disease; E11.65 Type 2 diabetes mellitus with hyperglycemia; I25.10 Atherosclerotic heart disease of native coronary artery without angina pectoris; E78.5 Hyperlipidemia, unspecified; E03.9 Hypothyroidism, unspecified; Z95.5 Presence of coronary angioplasty implant and graft; Z95.1 Presence of aortocoronary bypass graft; Z99.2 Dependence on renal dialysis; Z66 Do not resuscitate
CPT/HCPCS: 36415; 71045; 78452; 80048; 80061; 80076; 82947; 83735; 83880; 84484; 85025; 85610; 90935; 93005; 93017; 96374; 96375; 99285; A9500; G0378; J1644; J1650; J1815; J2270; J2405; J2785